=== PATIENT | female | born 1955 | race African-American/Black ===

== ENCOUNTER 2017-07-12 13:17 | Inpatient (IN) | payer BC, OTHER ==
[~2017-07-12] VITALS: Ht 167.6 cm; Wt 54.4 kg
[~2017-07-12 13:17] MED LIST: IBUPROFEN600 MG PO; LOSARTAN POTASS50 MG ORAL; NKMED; TYLENOL EXTRA500 MG ORAL; VICODIN 5-5001 EACH PO
[2017-07-12] MEDS ORDERED: CIPRO250 MG/51 PO (13:30)
[2017-07-12] MEDS ORDERED: SYMAX-SL0.125 MG SL (13:30)
[2017-07-12] MEDS ORDERED: ZOFRAN ODT4 MG ORAL (13:30)
[2017-07-12 13:35] VITALS: BP 163/69
[2017-07-12] MEDS ORDERED: Acetaminophen 500mg (ES) tab ORAL ONE (13:45)
--- NOTE | 2017-07-12 13:50 | Emergency Room Report ---
History of Present Illness General Chief Complaint: Constipation Source: Patient, Medical Record Present Illness HPI 62 yo female patient presents to ER complaining of constipation x4 days. Reports no diarrhea during this time. Reports pain in lower abdomen. Reports taking Zofran and Symax-SL for symptom relief. Taking Cipro for UTI, taking medication since , provided by Dr. Schmitt. Denies hx of kidney problems. Denies hx of GI problems or GI surgery. Reports hx of ovarian cyst and fibroids; reports surgery to remove years ago. Denies fever, chest pain, SOB. Patient also complains of hematuria. Denies dysuria, vaginal discharge. Denies nausea, vomiting, vision changes. Allergies: Coded Allergies: No Known Allergies (Unverified , 01/22/12) Patient History Past Medical History: see triage record Reviewed Nursing Documentation: PMH: Agreed; PSxH: Agreed Nursing Documentation-PMH Past Medical History: No History, Except For Hx Hypertension: Yes Hx Pacemaker: No Hx Asthma: No Hx COPD: No Hx Diabetes: No Hx Cancer: No Hx Gastrointestinal Problems: No Hx Dialysis: No Hx Neurological Problems: No Hx Cerebrovascular Accident: No Hx Seizures: No Review of Systems All Other Systems: negative except mentioned in HPI Physical Exam Vital Signs Date Time Temp Pulse Resp B/P (MAP) Pulse Ox O2 Delivery O2 Flow Rate FiO2 07/12/17 13:25 100.1 102 18 146/81 96 Room Air 100.0 Sp02 EP Interpretation: reviewed, normal General Appearance: well appearing, no apparent distress, alert, GCS 15, non- toxic Head: normocephalic, atraumatic ENT: hearing grossly normal, normal pharynx, no angioedema, normal voice, uvula midline, moist mucus membranes Neck: full range of motion Respiratory: lungs clear, normal breath sounds, no rhonchi, no respiratory distress, no accessory muscle use, no wheezing, speaking full sentences Cardiovascular #1: regular rate, rhythm, no edema Gastrointestinal: soft, no mass, non-distended, no guarding, no rebound, tenderness - supraprubic Neurologic: alert, oriented x3, responsive, motor strength/tone normal, sensory intact Psychiatric: mood/affect normal Skin: no rash Medical Decision Making PA Attestation Dr. Anaya is my supervising Physician whom patient management has been discussed with. Diagnostic Impression: Primary Impression: Constipation Additional Impressions: Phlegmon Abdominal infection ER Course Pt. presents to the ED c/o abdominal pain and vomiting. Ddx considered but are not limited to UTI, cholelithiasis, cholecystitis, pancreatitis, appendicitis, diverticulitis. Begin abdominal pain workup. Provided patient with pain medication. Vital signs: are WNL, pt. is afebrile ORDERS: CBC, CMP, Lipase, UA, Troponin CT abdomen pelvis, renal US, and pain medication. ER COURSE: Dr. Perez consulted Dr. Schmitt regarding patient. Tylenol for pain CBC and CMP unremarkable, mild elevation of WBC, no elevation of liver enzymes Lipase 44, no acute elevation UA positive for leukocyte esterase, WBCs in urine. Currently being treated for UTI with Cipro, continue with current medication. Troponin negative 0.000 Dr. Schmitt reports gross hematuria, requesting renal US. Renal US negative for hydronephrosis, kidney stones, cysts per US ultrasound technician. CT abdomen pelvis shows: At the midline upper pelvis adjacent to the sigmoid there is area of phlegmon and inflammation measuring approximately 4 x 4.5 x 3.5 cm. Adjacent sigmoid wall is thickened. Overall findings likely represent diverticulitis/colitis and adjacent inflammation and phlegmon. Possible development of early abscess within the area of phlegmon of approximately 2.5 cm. Focal fatty infiltration of the liver adjacent to the falciform ligament otherwise liver unremarkable. Degenerative changes of the spine. Surgical clips bilateral pelvis Patient resting comfortably in bed. Dr. Schmitt reports gross hematuria, requesting renal US. Renal US negative for hydronephrosis, kidney stones, cysts per US ultrasound technician. Consult with Dr. Anaya. Consult with Dr. Garcia and Dr. Dexter. Patient will be admitted to telemetry for abdominal infection vs. abscess. Patient admitted to Dr. Garcia. Labs Test 07/12/17 13:45 07/12/17 14:21 White Blood Count 12.1 K/UL (4.8-10.8) Red Blood Count 4.19 M/UL (4.20-5.40) Hemoglobin 13.9 G/DL (12.0-16.0) Hematocrit 40.4 % (37.0-47.0) Mean Corpuscular Volume 96 FL (80-99) Mean Corpuscular Hemoglobin 33.2 PG (27.0-31.0) Mean Corpuscular Hemoglobin Concent 34.4 G/DL (32.0-36.0) Red Cell Distribution Width 10.9 % (11.6-14.8) Platelet Count 202 K/UL (150-450) Mean Platelet Volume 7.1 FL (6.5-10.1) Neutrophils (%) (Auto) % (45.0-75.0) Lymphocytes (%) (Auto) % (20.0-45.0) Monocytes (%) (Auto) % (1.0-10.0) Eosinophils (%) (Auto) % (0.0-3.0) Basophils (%) (Auto) % (0.0-2.0) Differential Total Cells Counted 100 Neutrophils % (Manual) 85 % (45-75) Lymphocytes % (Manual) 6 % (20-45) Monocytes % (Manual) 8 % (1-10) Eosinophils % (Manual) 1 % (0-3) Basophils % (Manual) 0 % (0-2) Band Neutrophils 0 % (0-8) Platelet Estimate Adequate Platelet Morphology Normal Red Blood Cell Morphology Normal Sodium Level 137 MMOL/L (136-145) Potassium Level 3.7 MMOL/L (3.5-5.1) Chloride Level 101 MMOL/L (98-107) Carbon Dioxide Level 26 MMOL/L (21-32) Anion Gap 10 mmol/L (5-15) Blood Urea Nitrogen 17 mg/dL (7-18) Creatinine 0.5 MG/DL (0.55-1.30) Estimat Glomerular Filtration Rate > 60 mL/min (>60) Glucose Level 94 MG/DL (74-106) Calcium Level 9.5 MG/DL (8.5-10.1) Total Bilirubin 0.8 MG/DL (0.2-1.0) Aspartate Amino Transf (AST/SGOT) 25 U/L (15-37) Alanine Aminotransferase (ALT/SGPT) 26 U/L (12-78) Alkaline Phosphatase 133 U/L (46-116) Troponin I 0.000 ng/mL (0.000-0.056) Total Protein 7.7 G/DL (6.4-8.2) Albumin 3.3 G/DL (3.4-5.0) Globulin 4.4 g/dL Albumin/Globulin Ratio 0.8 (1.0-2.7) Lipase 44 U/L (73-393) Urine Color Yellow Urine Appearance Slightly cloudy Urine pH 7 (4.5-8.0) Urine Specific [place] 1.015 (1.005-1.035) Urine Protein 2+ (NEGATIVE) Urine Glucose (UA) Negative (NEGATIVE) Urine Ketones 4+ (NEGATIVE) Urine Occult Blood 4+ (NEGATIVE) Urine Nitrite Negative (NEGATIVE) Urine Bilirubin 1+ (NEGATIVE) Urine Ictotest Negative Urine Urobilinogen 8 MG/DL (0.0-1.0) Urine Leukocyte Esterase 3+ (NEGATIVE) Urine RBC 2-4 /HPF (0 - 2) Urine WBC 5-10 /HPF (0 - 2) Urine Squamous Epithelial Cells Moderate /LPF (NONE/OCC) Urine Bacteria Few /HPF (NONE) EKG Diagnostic Results Rate: normal Rhythm: NSR ST Segments: no acute changes ASA given to the pt in ED: No PA Scribe Text Ye Laguna PA-C Rhythm Strip Diag. Results EP Interpretation: yes Rate: 94 Rhythm: NSR, no PVC's, no ectopy PA Scribe Text Ye Laguna PA-C CT/MRI/US Diagnostic Results CT/MRI/US Diagnostic Results #1: Imaging Test Ordered: CT abdomen pelvis Impression STATRAD At the midline upper pelvis adjacent to the sigmoid there is area of phlegmon and inflammation measuring approximately 4 x 4.5 x 3.5 cm. Adjacent sigmoid wall is thickened. Overall findings likely represent diverticulitis/colitis and adjacent inflammation and phlegmon. Possible development of early abscess within the area of phlegmon of approximately 2.5 cm. No bowel obstruction or free air or free fluid. Appendix normal caliber. Lung bases are clear of infiltrates No urinary tract stones or hydronephrosis or perinephric inflammatory changes. Focal fatty infiltration of the liver adjacent to the falciform ligament otherwise liver unremarkable. Remaining solid organs of the abdomen along with the gallbladder are unremarkable Degenerative changes of the spine. No acute osseous abnormality. Surgical clips bilateral pelvis CT/MRI/US Diagnostic Results #2: Imaging Test Ordered: Renal US Impression No renal calculi, no hydronephrosis per US ultrasound technician VIA STATRAD Kidneys are normal size and echotexture bilaterally No evidence of hydronephrosis. No renal calculi identified. Urinary bladder is nondistended limiting bladder evaluation. Last Vital Signs Date Time Temp Pulse Resp B/P (MAP) Pulse Ox O2 Delivery O2 Flow Rate FiO2 07/12/17 13:25 100.1 102 18 146/81 96 Room Air 100.0 Disposition: ADMITTED INPATIENT Condition: Serious Jose Laguna Jul 12, 2017 13:50
[2017-07-12 14:00] LABS: HEMATOCRIT 40.4 % (37.0-47.0); HEMOGLOBIN 13.9 G/DL (12.0-16.0); MEAN CORPUSCULAR VOLUME 96 FL (80-99); PLATELET COUNT 202 K/UL (150-450); RED BLOOD COUNT 4.19 M/UL (4.20-5.40); RED CELL DISTRIBUTION WIDTH 10.9 % (11.6-14.8); WHITE BLOOD COUNT 12.1 K/UL (4.8-10.8)
[2017-07-12 14:08] LABS: ANION GAP 10 mmol/L (5-15); BLOOD UREA NITROGEN 17 mg/dL (7-18); CALCIUM 9.5 MG/DL (8.5-10.1); CARBON DIOXIDE 26 MMOL/L (21-32); CHLORIDE 101 MMOL/L (98-107); CREATININE 0.5 MG/DL (0.55-1.30); POTASSIUM 3.7 MMOL/L (3.5-5.1); SODIUM 137 MMOL/L (136-145)
[2017-07-12 14:12] LABS: ALANINE AMINOTRANSFERASE 26 U/L (12-78); ALBUMIN 3.3 G/DL (3.4-5.0); ALBUMIN/GLOBULIN RATIO 0.8 (1.0-2.7); ALKALINE PHOSPHATASE 133 U/L (46-116); ASPARTATE AMINO TRANSFERASE 25 U/L (15-37); BILIRUBIN,TOTAL 0.8 MG/DL (0.2-1.0)
[2017-07-12 14:28] LABS: APPEARANCE,URINE SLIGHTLY CLOUDY; BILIRUBIN, URINE 1+ (NEGATIVE); GLUCOSE, URINE (UA) NEGATIVE (NEGATIVE); KETONES,URINE 4+ (NEGATIVE); LEUKOCYTE ESTERASE ,URINE 3+ (NEGATIVE); NITRITE,URINE NEGATIVE (NEGATIVE); PH,URINE 7 (4.5-8.0); PROTEIN,URINE 2+ (NEGATIVE); UROBILINOGEN,URINE 8 MG/DL (0.0-1.0)
[2017-07-12 14:41] LABS: COLOR,URINE YELLOW
[2017-07-12 15:53] VITALS: BP 135/72
[2017-07-12] MEDS ORDERED: Vancomycin 1 GM in NS 275 ML IVPB ONE (16:15)
[2017-07-12] MEDS ORDERED: Piperacillin/Tazobactam 3.375 GM in NS 110 ML IVPB ONE (16:15)
[2017-07-12 17:47] VITALS: BP 133/68
[2017-07-12] MEDS ORDERED: LEVSIN-SL0.125 MG SL (18:38)
[2017-07-12 18:55] VITALS: BP 135/80
[2017-07-12 20:00] VITALS: BP 145/78
[2017-07-12] MEDS ORDERED: Milk of Magnesia 30ml Ud ORAL PRN (20:15)
[2017-07-12] MEDS: Norco 5mg/325mg tab ORAL PRN (21:29)
[2017-07-12] MEDS: Zoysn 3.37gm in NS 100ML IVPB SCH (21:33)
[2017-07-12] MEDS: Heparin 5000 units/ml inj SUBQ SCH (21:34)
[2017-07-12] MEDS ORDERED: Morphine Sulfate 2mg/ml Inj IVP PRN (23:15)
--- NOTE | 2017-07-12 23:15 | Consultation ---
History of Present Illness General Date patient seen: Jul 12, 2017 Chief Complaint: Constipation Reason for Consultation: abdominal pain; acute diverticulitis Present Illness HPI 62 year old female presented to ED with complaints of worsening abdominal pain. As per patient, she began to have some cramping LLQ abdominal pain 4-5 days ago which has progressively worsened since. Currently pain 7/10 and intermittent. no radiation of pain. associated nausea but no emesis. no fever or chills. has not had BM in 4 days. passing flatus. Came to ED for evaluation today and noted to have acute diverticulitis with peridiverticular phlegmon. surgery called to evaluate. Allergies: Coded Allergies: No Known Allergies (Unverified , 01/22/12) Medication History Scheduled Ciprofloxacin (Cipro), 250 MG PO BID, (Reported) Hyoscyamine Sulfate* (Levsin-Sl*), 0.125 MG SL FOUR TIMES A DAY, (Reported) Scheduled PRN Ondansetron Odt* (Zofran Odt*), 4 MG ORAL Q6H PRN for Nausea & Vomiting, ( Reported) Discontinued Medications Acetaminophen* (Tylenol Extra Strength*), 500 MG ORAL Q8H PRN for For Pain Discontinued Reason: Pt stopped taking med Losartan Potassium* (Losartan Potassium*), 50 MG ORAL DAILY, (Reported) Discontinued Reason: Pt stopped taking med Patient History History Provided By: Patient, Medical Record, PMD Healthcare decision maker Resuscitation status Full Code Advanced Directive on File No Past Medical/Surgical History Past Medical/Surgical History: (1) HTN (hypertension) (2) Acute diverticulitis (3) Phlegmon (4) Constipation (5) Abdominal infection (6) Abdominal infection Review of Systems All Other Systems: negative except mentioned in HPI Physical Exam General Appearance: no apparent distress, alert Lines, tubes and drains: peripheral HEENT: normocephalic, atraumatic, mucous membranes moist, PERRL Neck: normal inspection Respiratory/Chest: chest wall non-tender, lungs clear, normal breath sounds, no respiratory distress, no accessory muscle use Cardiovascular/Chest: normal peripheral pulses, normal rate Abdomen: normal bowel sounds, soft, no organomegaly, no mass, guarding, tender , other - soft, non distended, tender with voluntary guarding in lower abdomen mainly pelvic and LLQ. Extremities: normal range of motion, non-tender, normal inspection, no calf tenderness Skin Exam: normal pigmentation Neurologic: alert, oriented x 3, responsive Last 24 Hour Vital Signs Date Time Temp Pulse Resp B/P (MAP) Pulse Ox O2 Delivery O2 Flow Rate FiO2 07/12/17 20:00 97.0 89 20 145/78 100 97.0 07/12/17 20:00 88 07/12/17 18:55 99.0 86 20 135/80 97 Room Air 99.0 07/12/17 18:52 98.4 86 15 138/72 98 Room Air 98.7 07/12/17 17:47 98.7 82 20 133/68 97 Room Air 98.7 07/12/17 15:53 98.5 83 14 135/72 98 Room Air 98.5 07/12/17 14:54 98.5 07/12/17 13:55 99.7 07/12/17 13:35 99.7 97 24 163/69 98 Room Air 99.7 07/12/17 13:25 100.1 102 18 146/81 96 Room Air 100.0 Laboratory Tests Test 07/12/17 13:45 07/12/17 14:21 White Blood Count 12.1 K/UL (4.8-10.8) H Red Blood Count 4.19 M/UL (4.20-5.40) L Hemoglobin 13.9 G/DL (12.0-16.0) Hematocrit 40.4 % (37.0-47.0) Mean Corpuscular Volume 96 FL (80-99) Mean Corpuscular Hemoglobin 33.2 PG (27.0-31.0) H Mean Corpuscular Hemoglobin Concent 34.4 G/DL (32.0-36.0) Red Cell Distribution Width 10.9 % (11.6-14.8) L Platelet Count 202 K/UL (150-450) Mean Platelet Volume 7.1 FL (6.5-10.1) Neutrophils (%) (Auto) % (45.0-75.0) Lymphocytes (%) (Auto) % (20.0-45.0) Monocytes (%) (Auto) % (1.0-10.0) Eosinophils (%) (Auto) % (0.0-3.0) Basophils (%) (Auto) % (0.0-2.0) Differential Total Cells Counted 100 Neutrophils % (Manual) 85 % (45-75) H Lymphocytes % (Manual) 6 % (20-45) L Monocytes % (Manual) 8 % (1-10) Eosinophils % (Manual) 1 % (0-3) Basophils % (Manual) 0 % (0-2) Band Neutrophils 0 % (0-8) Platelet Estimate Adequate Platelet Morphology Normal Red Blood Cell Morphology Normal Sodium Level 137 MMOL/L (136-145) Potassium Level 3.7 MMOL/L (3.5-5.1) Chloride Level 101 MMOL/L (98-107) Carbon Dioxide Level 26 MMOL/L (21-32) Anion Gap 10 mmol/L (5-15) Blood Urea Nitrogen 17 mg/dL (7-18) Creatinine 0.5 MG/DL (0.55-1.30) L Estimat Glomerular Filtration Rate > 60 mL/min (>60) Glucose Level 94 MG/DL (74-106) Calcium Level 9.5 MG/DL (8.5-10.1) Total Bilirubin 0.8 MG/DL (0.2-1.0) Aspartate Amino Transf (AST/SGOT) 25 U/L (15-37) Alanine Aminotransferase (ALT/SGPT) 26 U/L (12-78) Alkaline Phosphatase 133 U/L (46-116) H Troponin I 0.000 ng/mL (0.000-0.056) Total Protein 7.7 G/DL (6.4-8.2) Albumin 3.3 G/DL (3.4-5.0) L Globulin 4.4 g/dL Albumin/Globulin Ratio 0.8 (1.0-2.7) L Lipase 44 U/L (73-393) L Urine Color Yellow Urine Appearance Slightly cloudy Urine pH 7 (4.5-8.0) Urine Specific [place] 1.015 (1.005-1.035) Urine Protein 2+ (NEGATIVE) H Urine Glucose (UA) Negative (NEGATIVE) Urine Ketones 4+ (NEGATIVE) H Urine Occult Blood 4+ (NEGATIVE) H Urine Nitrite Negative (NEGATIVE) Urine Bilirubin 1+ (NEGATIVE) H Urine Ictotest Negative Urine Urobilinogen 8 MG/DL (0.0-1.0) H Urine Leukocyte Esterase 3+ (NEGATIVE) H Urine RBC 2-4 /HPF (0 - 2) H Urine WBC 5-10 /HPF (0 - 2) H Urine Squamous Epithelial Cells Moderate /LPF (NONE/OCC) H Urine Bacteria Few /HPF (NONE) Height (Feet): 5 Height (Inches): 5.00 Weight (Pounds): 120 Medications Current Medications Medications (Trade) Dose Ordered Sig/Hood Route PRN Reason Start Time Stop Time Status Last Admin Dose Admin Acetaminophen (Tylenol) 650 mg Q6H PRN ORAL Mild Pain/Temp > 100.5 07/12/17 20:15 08/11/17 20:14 Acetaminophen/ Hydrocodone Bitart ([place] 5/325) 1 tab Q4H PRN ORAL Severe Pain (Pain Scale 7-10) 07/12/17 20:15 07/19/17 20:14 07/12/17 21:29 Al Hydroxide/Mg Hydroxide (Mylanta) 30 ml BID PRN ORAL stomach upset 07/12/17 20:15 08/11/17 20:14 Docusate Sodium (Colace) 100 mg TWICE A DAY ORAL 07/13/17 09:00 08/12/17 08:59 Heparin Sodium (Porcine) (Heparin 5000 units/ml) 5,000 units EVERY 12 HOURS SUBQ 07/12/17 21:00 08/11/17 20:59 07/12/17 21:34 Hyoscyamine Sulfate (Levsin) 0.125 mg QIDPRN PRN ORAL ABDOMINAL CRAMPS 07/12/17 20:15 08/11/17 20:14 Magnesium Hydroxide (Mom) 30 ml DAILYPRN PRN ORAL Constipation 07/12/17 20:15 08/11/17 20:14 Ondansetron HCl (Zofran) 4 mg Q4HR PRN IVP Nausea & Vomiting 07/12/17 20:15 08/11/17 20:14 Piperacillin Sod/ Tazobactam Sod 3.375 gm/Sodium Chloride 110 ml @ 27.5 mls/hr Q8H IVPB 07/12/17 22:00 07/19/17 23:59 07/12/17 21:33 Sodium Chloride 1,000 ml @ 100 mls/hr Q10H IV 07/12/17 20:15 08/11/17 20:14 07/12/17 21:19 Assessment/Plan Problem List: (1) Acute diverticulitis Assessment & Plan: 62F with acute diverticulitis. Afebrile, HD stable, mild leukocytosis, exam with lower abdominal tenderness, CT with phlegmon. Hinchy 1 classification. -no acute surgical intervention at this time. -NPO -IV fluids -IV abx -will monitor exam. once improved will trail oral diet. -phlegmon may become abscess that needs to be drained -if decompensates/worsens may require surgery thank you for this consultation. will follow with recs. ICD Codes: K57.92 - Diverticulitis of intestine, part unspecified, without perforation or abscess without bleeding SNOMED: [id number] Status: stable Malachi Dexter Jul 12, 2017 23:15
[2017-07-13] VITALS: BP 123/66
[2017-07-13 04:00] VITALS: BP 126/72
[2017-07-13] MEDS: Zoysn 3.37gm in NS 100ML IVPB SCH ×3 (05:35→21:19)
[2017-07-13] MEDS: Docusate 100mg cap ORAL SCH ×2 (09:11→18:43)
[2017-07-13] MEDS: Heparin 5000 units/ml inj SUBQ SCH ×2 (09:14→21:20)
[2017-07-13 09:15] LABS: BASOPHILS % (AUTO) 0.4 % (0.0-2.0); EOSINOPHILS % (AUTO) 0.5 % (0.0-3.0); HEMATOCRIT 37.5 % (37.0-47.0); HEMOGLOBIN 12.6 G/DL (12.0-16.0); LYMPHOCYTES % (AUTO) 9.9 % (20.0-45.0); MEAN CORPUSCULAR VOLUME 97 FL (80-99); NEUTROPHILS % (AUTO) 78.2 % (45.0-75.0); PLATELET COUNT 217 K/UL (150-450); RED BLOOD COUNT 3.88 M/UL (4.20-5.40); RED CELL DISTRIBUTION WIDTH 11.1 % (11.6-14.8)
[2017-07-13 09:53] LABS: ALANINE AMINOTRANSFERASE 25 U/L (12-78); ALBUMIN 2.9 G/DL (3.4-5.0); ALBUMIN/GLOBULIN RATIO 0.7 (1.0-2.7); ALKALINE PHOSPHATASE 123 U/L (46-116); ANION GAP 9 mmol/L (5-15); ASPARTATE AMINO TRANSFERASE 27 U/L (15-37); BILIRUBIN,TOTAL 0.9 MG/DL (0.2-1.0); BLOOD UREA NITROGEN 11 mg/dL (7-18); CALCIUM 8.9 MG/DL (8.5-10.1); CARBON DIOXIDE 28 MMOL/L (21-32); CHLORIDE 100 MMOL/L (98-107); CHOLESTEROL 162 MG/DL (< 200); CREATININE 0.5 MG/DL (0.55-1.30); HDL CHOLESTEROL 83 MG/DL (40-60); POTASSIUM 3.7 MMOL/L (3.5-5.1); SODIUM 137 MMOL/L (136-145); TRIGLYCERIDES 43 MG/DL (30-150)
--- NOTE | 2017-07-13 10:11 | Diagnostic Imaging Report ---
Indication: Abdominal pain Technique: Continuous helical transaxial imaging of the abdomen and pelvis was obtained from the lung bases to the pubic symphysis during intravenous contrast administration. Coronal 2-D reformats were also obtained. Study obtained in a Siemens sensation [address] Automatic Exposure Control was utilized. Total Dose length Product (DLP): 480.[address] Dose Index Volume (CTDIvol): 10.01 mGy Comparison: 09/11/2015 Findings: The ill-defined area of low attenuation anterior to the sigmoid colon measuring about 4 cm noted. This is probably area of focal inflammation or phlegmon. Agree with the pulmonary reading that this may represent early abscess. Recommend follow-up. The wall of the associated sigmoid colon is moderately thick. There is no evidence of obstruction. There is no free fluid. Appendix is normal. Solid organs appear unremarkable. There is a focal fat in the liver adjacent to the falciform ligament. Lung bases are clear. Accessory spleen noted. No biliary ductal dilatation is identified. Uterus noted. Surgical clips demonstrated in the right adnexa. Urinary bladder is nondistended. There is narrowing of intervertebral discs and accompanying endplate osteophyte formation. Hypertrophied facet joints also demonstrated. IMPRESSION: Suspected diverticulitis with abscess versus phlegmon just anterior to the sigmoid colon. This is doubtful to be percutaneously drainable given the location. Suggest follow-up. Other incidental findings as above The CT scanner at [facility] is accredited by the [employer] and the scans are performed using dose optimization techniques as appropriate to a performed exam including Automatic Exposure control.
--- NOTE | 2017-07-13 10:17 | General Surgery Progress Note ---
General Surgery-Progress Note Subjective Symptoms: improved Additional Comments no acute events. doing well. still with abdominal pain but somewhat improved. no n/v/f/c. Objective Last 24 Hour Vital Signs Date Time Temp Pulse Resp B/P (MAP) Pulse Ox O2 Delivery O2 Flow Rate FiO2 07/13/17 04:00 89 07/13/17 04:00 99.1 95 20 126/72 96 Room Air 99.1 07/13/17 00:00 87 07/13/17 00:00 99.0 89 20 123/66 100 Room Air 99.0 07/12/17 20:00 97.0 89 20 145/78 100 97.0 07/12/17 20:00 88 07/12/17 20:00 Room Air 07/12/17 18:55 99.0 86 20 135/80 97 Room Air 99.0 07/12/17 18:52 98.4 86 15 138/72 98 Room Air 98.7 07/12/17 17:47 98.7 82 20 133/68 97 Room Air 98.7 07/12/17 15:53 98.5 83 14 135/72 98 Room Air 98.5 07/12/17 14:54 98.5 07/12/17 13:55 99.7 07/12/17 13:35 99.7 97 24 163/69 98 Room Air 99.7 07/12/17 13:25 100.1 102 18 146/81 96 Room Air 100.0 I&O Intake and Output 07/12/17 07/13/17 19:00 07:00 Intake Total 385.0 ml 1145 ml Balance 385.0 ml 1145 ml Intake Oral 30 ml IV Total 385.0 ml 1115 ml # Voids 1 1 Drains: none Cardiovascular: RSR Respiratory: clear Abdomen: soft, flat, tenderness, other - tender in LLQ and lower abdomen with voluntary guarding and rebound. Laboratory Tests Test 07/12/17 13:45 07/12/17 14:21 07/13/17 08:35 White Blood Count 12.1 K/UL (4.8-10.8) H 11.0 K/UL (4.8-10.8) H Red Blood Count 4.19 M/UL (4.20-5.40) L 3.88 M/UL (4.20-5.40) L Hemoglobin 13.9 G/DL (12.0-16.0) 12.6 G/DL (12.0-16.0) Hematocrit 40.4 % (37.0-47.0) 37.5 % (37.0-47.0) Mean Corpuscular Volume 96 FL (80-99) 97 FL (80-99) Mean Corpuscular Hemoglobin 33.2 PG (27.0-31.0) H 32.6 PG (27.0-31.0) H Mean Corpuscular Hemoglobin Concent 34.4 G/DL (32.0-36.0) 33.7 G/DL (32.0-36.0) Red Cell Distribution Width 10.9 % (11.6-14.8) L 11.1 % (11.6-14.8) L Platelet Count 202 K/UL (150-450) 217 K/UL (150-450) Mean Platelet Volume 7.1 FL (6.5-10.1) 7.1 FL (6.5-10.1) Neutrophils (%) (Auto) % (45.0-75.0) 78.2 % (45.0-75.0) H Lymphocytes (%) (Auto) % (20.0-45.0) 9.9 % (20.0-45.0) L Monocytes (%) (Auto) % (1.0-10.0) 11.0 % (1.0-10.0) H Eosinophils (%) (Auto) % (0.0-3.0) 0.5 % (0.0-3.0) Basophils (%) (Auto) % (0.0-2.0) 0.4 % (0.0-2.0) Differential Total Cells Counted 100 Neutrophils % (Manual) 85 % (45-75) H Lymphocytes % (Manual) 6 % (20-45) L Monocytes % (Manual) 8 % (1-10) Eosinophils % (Manual) 1 % (0-3) Basophils % (Manual) 0 % (0-2) Band Neutrophils 0 % (0-8) Platelet Estimate Adequate Platelet Morphology Normal Red Blood Cell Morphology Normal Sodium Level 137 MMOL/L (136-145) 137 MMOL/L (136-145) Potassium Level 3.7 MMOL/L (3.5-5.1) 3.7 MMOL/L (3.5-5.1) Chloride Level 101 MMOL/L (98-107) 100 MMOL/L (98-107) Carbon Dioxide Level 26 MMOL/L (21-32) 28 MMOL/L (21-32) Anion Gap 10 mmol/L (5-15) 9 mmol/L (5-15) Blood Urea Nitrogen 17 mg/dL (7-18) 11 mg/dL (7-18) Creatinine 0.5 MG/DL (0.55-1.30) L 0.5 MG/DL (0.55-1.30) L Estimat Glomerular Filtration Rate > 60 mL/min (>60) > 60 mL/min (>60) Glucose Level 94 MG/DL (74-106) 82 MG/DL (74-106) Calcium Level 9.5 MG/DL (8.5-10.1) 8.9 MG/DL (8.5-10.1) Total Bilirubin 0.8 MG/DL (0.2-1.0) 0.9 MG/DL (0.2-1.0) Aspartate Amino Transf (AST/SGOT) 25 U/L (15-37) 27 U/L (15-37) Alanine Aminotransferase (ALT/SGPT) 26 U/L (12-78) 25 U/L (12-78) Alkaline Phosphatase 133 U/L (46-116) H 123 U/L (46-116) H Troponin I 0.000 ng/mL (0.000-0.056) Total Protein 7.7 G/DL (6.4-8.2) 7.0 G/DL (6.4-8.2) Albumin 3.3 G/DL (3.4-5.0) L 2.9 G/DL (3.4-5.0) L Globulin 4.4 g/dL 4.1 g/dL Albumin/Globulin Ratio 0.8 (1.0-2.7) L 0.7 (1.0-2.7) L Lipase 44 U/L (73-393) L Urine Color Yellow Urine Appearance Slightly cloudy Urine pH 7 (4.5-8.0) Urine Specific [place] 1.015 (1.005-1.035) Urine Protein 2+ (NEGATIVE) H Urine Glucose (UA) Negative (NEGATIVE) Urine Ketones 4+ (NEGATIVE) H Urine Occult Blood 4+ (NEGATIVE) H Urine Nitrite Negative (NEGATIVE) Urine Bilirubin 1+ (NEGATIVE) H Urine Ictotest Negative Urine Urobilinogen 8 MG/DL (0.0-1.0) H Urine Leukocyte Esterase 3+ (NEGATIVE) H Urine RBC 2-4 /HPF (0 - 2) H Urine WBC 5-10 /HPF (0 - 2) H Urine Squamous Epithelial Cells Moderate /LPF (NONE/OCC) H Urine Bacteria Few /HPF (NONE) Triglycerides Level 43 MG/DL (30-150) Cholesterol Level 162 MG/DL (< 200) LDL Cholesterol 69 mg/dL (<100) HDL Cholesterol 83 MG/DL (40-60) H Cholesterol/HDL Ratio 2.0 (3.3-4.4) L Plan Problems: (1) Acute diverticulitis Assessment & Plan: 62F with acute diverticulitis. Afebrile, HD stable, mild leukocytosis on admission, exam with lower abdominal tenderness, CT with phlegmon. Hinchy 1 classification. Leukocytosis resolved. Still with abdominal tenderness. conservative medical management for now. -NPO -IV fluids -IV abx -will monitor exam. -phlegmon may become abscess that needs to be drained; if pain does not resolve over next 2-3 days will need to re-image. -if decompensates/worsens will require surgery thank you for this consultation. will follow with recs. Malachi Dexter Jul 13, 2017 10:17
[2017-07-13] MEDS: Morphine Sulfate 4mg/ml Inj IVP PRN (10:54)
--- NOTE | 2017-07-13 11:45 | Consultation ---
DATE OF CONSULTATION: 07/13/2017 INFECTIOUS DISEASE CONSULTATION CONSULTING PHYSICIAN: José Vazquez M.D. This consult is for coverage of Dr. Sears. PRIMARY ATTENDING PHYSICIAN: Miles Fontaine M.D. REASON FOR CONSULTATION: Acute diverticulitis. HISTORY OF PRESENT ILLNESS: This is a 62-year-old female admitted yesterday from home complaining of pain in the left lower abdomen. She had constipation for four days and had fever at home. She had temperature of 100.1 in the hospital, had leukocytosis of 12.1. CT scan of the abdomen and pelvis showed diverticulitis and phlegmon. PAST MEDICAL HISTORY: She has history of surgery for fibroid, history of hypertension. ALLERGIES: No known drug allergies. MEDICATIONS: Colace, morphine, Zosyn, heparin, Zofran, hyoscyamine, Tylenol, milk of magnesia, Mylanta, [place]. SOCIAL HISTORY: and lives at home. No children. No history of alcohol, drug abuse, or smoking. REVIEW OF SYSTEMS: Mild fever at home. Left lower abdominal pain. No nausea. No vomiting. She has constipation. Genitourinary, the patient at the beginning stated that she has UTI and took Cipro at home. PHYSICAL EXAMINATION: VITAL SIGNS: Temperature 99.1, pulse 89, blood pressure 126/72. GENERAL APPEARANCE: No acute distress. HEAD AND NECK: She has whitish tongue. HEART: S1, S2. Regular. LUNGS: Clear. ABDOMEN: Soft. Tender in the left lower quadrant. EXTREMITIES: She has no edema. LABORATORY AND DIAGNOSTIC DATA: WBC 12.1, hemoglobin 13.9, hematocrit 40.4, platelet 202,000. Sodium 137, potassium 3.7, chloride 101, bicarbonate 26, BUN 17, creatinine 0.5, albumin 3.3. IMPRESSION: 1. Acute diverticulitis with rupture and intra-abdominal phlegmon. The patient was seen by the surgeon. 2. History of hypertension. RECOMMENDATION: Continue Zosyn. If the patient fails to respond to antibiotic and hydration, may need surgery. At the end of my exam, I thank Dr. Fontaine for involving me in the care of this patient. José Vazquez M.D. DR: Kasey JOB#: [id number] CC:
--- NOTE | 2017-07-13 12:06 | Diagnostic Imaging Report ---
Indication: Flank pain and pelvic pain Technique: Grayscale and duplex Doppler imaging of the kidneys performed. Comparison: None Findings: The size, contour, and echogenicity of both kidneys are within normal limits. There is no hydronephrosis. The IVC and urinary bladder are unremarkable. IMPRESSION: Negative examination
[2017-07-13] MEDS: Hyoscyamine 0.125mg tab ORAL PRN ×2 (13:36→18:43)
[2017-07-13] MEDS: Norco 5mg/325mg tab ORAL PRN ×2 (13:37→18:44)
--- NOTE | 2017-07-13 16:15 | General Progress Note ---
Assessment/Plan Assessment/Plan GI CONSULT Dictated. Stevenson Schmitt MD Subjective Allergies: Coded Allergies: No Known Allergies (Unverified , 01/22/12) Objective Last 24 Hour Vital Signs Date Time Temp Pulse Resp B/P (MAP) Pulse Ox O2 Delivery O2 Flow Rate FiO2 07/13/17 12:00 94 07/13/17 08:00 97 07/13/17 04:00 89 07/13/17 04:00 99.1 95 20 126/72 96 Room Air 99.1 07/13/17 00:00 87 07/13/17 00:00 99.0 89 20 123/66 100 Room Air 99.0 07/12/17 20:00 97.0 89 20 145/78 100 97.0 07/12/17 20:00 88 07/12/17 20:00 Room Air 07/12/17 18:55 99.0 86 20 135/80 97 Room Air 99.0 07/12/17 18:52 98.4 86 15 138/72 98 Room Air 98.7 07/12/17 17:47 98.7 82 20 133/68 97 Room Air 98.7 Intake and Output 07/12/17 07/13/17 19:00 07:00 Intake Total 385.0 ml 1145 ml Balance 385.0 ml 1145 ml Intake Oral 30 ml IV Total 385.0 ml 1115 ml # Voids 1 1 Laboratory Tests 07/13/17 08:35: White Blood Count 11.0H, Red Blood Count 3.88L, Hemoglobin 12.6, Hematocrit 37.5 , Mean Corpuscular Volume 97, Mean Corpuscular Hemoglobin 32.6H, Mean Corpuscular Hemoglobin Concent 33.7, Red Cell Distribution Width 11.1L, Platelet Count 217, Mean Platelet Volume 7.1, Neutrophils (%) (Auto) 78.2H, Lymphocytes (%) (Auto) 9.9L, Monocytes (%) (Auto) 11.0H, Eosinophils (%) (Auto) 0.5, Basophils (%) (Auto) 0.4, Sodium Level 137, Potassium Level 3.7, Chloride Level 100, Carbon Dioxide Level 28, Anion Gap 9, Blood Urea Nitrogen 11, Creatinine 0.5L, Estimat Glomerular Filtration Rate > 60, Glucose Level 82, Calcium Level 8.9, Total Bilirubin 0.9, Aspartate Amino Transf (AST/SGOT) 27, Alanine Aminotransferase (ALT/SGPT) 25, Alkaline Phosphatase 123H, Total Protein 7.0, Albumin 2.9L, Globulin 4.1, Albumin/Globulin Ratio 0.7L, Triglycerides Level 43, Cholesterol Level 162, LDL Cholesterol 69, HDL Cholesterol 83H, Cholesterol/HDL Ratio 2.0L Height (Feet): 5 Height (Inches): 5.00 Weight (Pounds): 120 STEVENSON SCHMITT Jul 13, 2017 16:15
[2017-07-13 20:00] VITALS: BP 135/66
[2017-07-14] VITALS: BP 127/74
--- NOTE | 2017-07-14 | Consultation ---
DATE OF CONSULTATION: 07/13/2017 GASTROENTEROLOGY CONSULTATION CONSULTING PHYSICIAN: Stevenson Schmitt M.D. CHIEF COMPLAINT: I was asked to see this patient for evaluation of left-sided abdominal pain and diverticulitis. HISTORY OF PRESENT ILLNESS: The patient is a pleasant 62-year-old woman, who comes into the hospital with a four-day history of progressive left lower quadrant abdominal pain with CT scan showing evidence of diverticulitis. She was seen in the office two days after onset of her pain and she had some complaints of nausea and poor appetite and some mild abdominal pain, which did improve. She also noted some hematuria and therefore it was felt that the patient's symptoms could possibly be due to renal pathology. A prescription for ciprofloxacin was given to her and various blood tests were sent. However, she is now presenting with worsening pain and CT showing diverticulitis with early phlegmon formation. Her last colonoscopy was in May of 2015 where scattered diverticuli were seen. The patient also previously was seen for some degree of chronic loose stools and some weight loss over time. In March last year, her fecal calprotectin was negative and her labs were also normal. Stool occult blood was also negative and her stool ova and parasite exam was also negative. The patient also had her inflammatory bowel disease markers drawn in February 2017, which were negative and she has no family history of inflammatory bowel disease. Her C-reactive protein is also negative. Iron panel was normal. PAST MEDICAL HISTORY: History of fibroids and history of mild diverticulosis in the left colon. PAST SURGICAL HISTORY: Status post lung surgery at age 4 for repair of the cyst and status post multiple fibroids surgery. ALLERGIES: No known drug allergies. FAMILY HISTORY: Unremarkable. SOCIAL HISTORY: The patient is . She does not smoke, drink alcohol, or use drugs. REVIEW OF SYSTEMS: Otherwise negative. PHYSICAL EXAMINATION: GENERAL: A pleasant woman, seen in her room. HEENT: Normocephalic and atraumatic. Sclerae anicteric. Oropharynx clear. NECK: Supple. CHEST: Clear to auscultation. CARDIOVASCULAR: Revealed a regular rate. ABDOMEN: Soft with left lower quadrant tenderness with some involuntary guarding. EXTREMITIES: Revealed no edema. LABORATORY DATA: Laboratory data were noted. ASSESSMENT: This patient presents with worsening of left lower quadrant tenderness and now CT scan showing evidence of diverticulitis with phlegmon. This has been somewhat of unexpected occurrence since the patient's diverticular burden based on 2016 colonoscopy was not impressive. Nonetheless, CT scan images were specific in this regard. Therefore, the patient will be treated accordingly. The patient has been seen by surgical device sales representative who will also follow her. There may be an indication for resection at some point in the future given her severity of disease, but that will be discussed at a later time. The patient may also benefit from another colonoscopy in about a month or two once she is recovered in order to marine the areas in the colon. RECOMMENDATIONS: Per above discussion and per orders written in the chart. Thank you for asking me to participate in the care of this patient. Stevenson Schmitt M.D. DR: JOYCE JOB#: [id number] CC: NETO
--- NOTE | 2017-07-14 03:00 | History and Physical Report ---
DATE OF ADMISSION: 07/12/2017 HISTORY OF PRESENT ILLNESS: The patient is a very pleasant 62-year-old female with history of hypertension, who presented to the emergency room with complaints of worsening abdominal pain she has had for the past week. She states she had seen her physician in the office and was treated initially for urinary tract infection with ciprofloxacin, however, developed increased abdominal pain associated with nausea, no vomiting. She admitted to some chills, no fever. She states she has not had any bowel movements for four days. She did pass flatus. In the ER, she did undergo CT scan, which revealed acute diverticulitis with periventricular phlegmon. The patient was evaluated by Dr. Dexter from Surgery and has been admitted, kept NPO, and placed on antibiotics. She denies any chest pain or shortness of breath. No headaches. No sore throat. PAST MEDICAL HISTORY: Includes history of hypertension. MEDICATIONS: She was on at home include Cipro and hyoscyamine sulfate. ALLERGIES: No known. SOCIAL HISTORY: She does not smoke, does not drink any alcohol, does not use any drugs. FAMILY HISTORY: Noncontributory. REVIEW OF SYSTEMS: Twelve point review of systems reviewed and negative except for above. PHYSICAL EXAMINATION: GENERAL: She is well developed and well nourished, currently in no apparent distress. VITAL SIGNS: Reveal a blood pressure of 135/66, pulse 85, respirations 20, temperature 98.6 degrees, and saturation is 96% on room air. HEENT: Head is normocephalic and atraumatic. Pupils are equally reactive to light. Extraocular muscles are intact. Eyes are anicteric. NECK: Supple. LUNGS: Clear. HEART: Regular rate and rhythm. ABDOMEN: She does have tenderness to palpation in the lower quadrants. No rebound. Some guarding. EXTREMITIES: No clubbing, cyanosis, or edema. NEUROLOGIC: Nonfocal. LABORATORY AND DIAGNOSTIC DATA: Labs revealed a white count of 12.1, hemoglobin 13.9, hematocrit 40.4, and platelet count 202,000. Sodium 137, potassium 3.7, chloride 101, bicarbonate 26, BUN 17, and creatinine 0.5. Lipase 44. Urinalysis reveals 5 to 10 WBCs, 2 to 4 RBCs, 3+ leukocyte esterase, 4+ ketones, and 4+ occult blood. Abdominopelvic CT that was performed revealed a suspected diverticulitis with abscess versus phlegmon just anterior to the sigmoid colon. The patient also underwent renal ultrasound, which was negative. ASSESSMENT AND PLAN: The patient is a pleasant 62-year-old female, presents with abdominal pain. CT scan consistent with diverticulitis and phlegmon. The patient has been admitted to be placed on NPO, placed on intravenous fluids, and started on antibiotics. She will be seen by GI, Dr. Schmitt as well as General Surgery, Dr. Dexter. We will need to observe closely for now and follow up further imaging studies. The patient should be on DVT and ulcer prophylaxes. Miles Fontaine M.D. DR: Yissel JOB#: [id number] CC:
[2017-07-14 04:00] VITALS: BP 124/63
[2017-07-14] MEDS: Zoysn 3.37gm in NS 100ML IVPB SCH ×3 (05:39→21:20)
[2017-07-14] MEDS: Docusate 100mg cap ORAL SCH ×2 (09:00→18:06)
[2017-07-14] MEDS: Heparin 5000 units/ml inj SUBQ SCH ×2 (09:00→21:19)
--- NOTE | 2017-07-14 10:59 | General Surgery Progress Note ---
General Surgery-Progress Note Subjective Additional Comments patient seen and examined. states she feels better. no n/v/f/c. no BM. still with pain/tenderness. Objective Last 24 Hour Vital Signs Date Time Temp Pulse Resp B/P (MAP) Pulse Ox O2 Delivery O2 Flow Rate FiO2 07/14/17 04:00 81 07/14/17 04:00 97.9 90 20 124/63 98 Room Air 97.9 07/14/17 00:00 97.9 80 20 127/74 93 Room Air 97.9 07/14/17 00:00 78 07/13/17 20:00 98.6 75 20 135/66 96 Room Air 98.6 07/13/17 20:00 85 07/13/17 19:57 99.1 07/13/17 16:00 89 07/13/17 12:00 94 I&O Intake and Output 07/13/17 07/14/17 19:00 07:00 Intake Total 1216 ml Balance 1216 ml IV Total 1216 ml # Voids 3 1 Cardiovascular: RSR Respiratory: clear Abdomen: soft, tenderness, other - focal LLQ tenderness with rebound and guarding Extremities: no tenderness, no cyanosis Plan Problems: (1) Acute diverticulitis Assessment & Plan: 62F with acute diverticulitis. Afebrile, HD stable, mild leukocytosis on admission, exam with lower abdominal tenderness, CT with phlegmon. Hinchy 1 classification. Leukocytosis resolved. Still with abdominal tenderness. States she feels better but almost has a little more tenderness on exam today. I spoke with patient and her family. discussed exam findings today. conservative medical management for now. -NPO -IV fluids -IV abx -will monitor exam. -phlegmon may become abscess that needs to be drained; if pain does not resolve over next 2-3 days will need to re-image. May re-image tomorrow -if decompensates/worsens will require surgery thank you for this consultation. will follow with recs. Malachi Dexter Jul 14, 2017 10:59
--- NOTE | 2017-07-14 11:48 | Infectious Diseases Prog Note ---
"Assessment/Plan Assessment/Plan antibiotics : zosyn A 1. diverticulitis with perforation | abscess 2. HTN P 1. continue zosyn 2. plan per surgery Subjective Constitutional: Denies: fever, chills Respiratory: Denies: shortness of breath, dry cough Gastrointestinal/Abdominal: Reports: nausea; Denies: vomiting, diarrhea Musculoskeletal: Reports: pain - abdominal Allergies: Coded Allergies: No Known Allergies (Unverified , 01/22/12) Objective Vital Signs Last 24 Hour Vital Signs Date Time Temp Pulse Resp B/P (MAP) Pulse Ox O2 Delivery O2 Flow Rate FiO2 07/14/17 08:00 93 07/14/17 04:00 81 07/14/17 04:00 97.9 90 20 124/63 98 Room Air 97.9 07/14/17 00:00 97.9 80 20 127/74 93 Room Air 97.9 07/14/17 00:00 78 07/13/17 20:00 98.6 75 20 135/66 96 Room Air 98.6 07/13/17 20:00 85 07/13/17 19:57 99.1 07/13/17 16:00 89 07/13/17 12:00 94 Height (Feet): 5 Height (Inches): 5.00 Weight (Pounds): 120 Respiratory/Chest: lungs clear Cardiovascular: normal rate, regular rhythm, no gallop/murmur Abdomen: tender - in left lower quadrant Extremities: no edema BRISSA WORLEY Jul 14, 2017 11:48"
--- NOTE | 2017-07-14 12:38 | General Progress Note ---
Assessment/Plan Assessment/Plan Assessment - actue diverticulitis with likely phelgmon / microperf - leukocytosis Recommnedations - NPO - IVF - ABX - serial CBC - serial exam - surgical f/u Subjective Allergies: Coded Allergies: No Known Allergies (Unverified , 01/22/12) Subjective Feels OK / same still with some abd pain No BM Objective Last 24 Hour Vital Signs Date Time Temp Pulse Resp B/P (MAP) Pulse Ox O2 Delivery O2 Flow Rate FiO2 07/14/17 08:00 93 07/14/17 04:00 81 07/14/17 04:00 97.9 90 20 124/63 98 Room Air 97.9 07/14/17 00:00 97.9 80 20 127/74 93 Room Air 97.9 07/14/17 00:00 78 07/13/17 20:00 98.6 75 20 135/66 96 Room Air 98.6 07/13/17 20:00 85 07/13/17 19:57 99.1 07/13/17 16:00 89 Intake and Output 07/13/17 07/14/17 19:00 07:00 Intake Total 1216 ml Balance 1216 ml IV Total 1216 ml # Voids 3 1 Height (Feet): 5 Height (Inches): 5.00 Weight (Pounds): 120 Objective WDWN AA woman NCAT supple CTA RRR soft ND, (+) TTP LLQ - minimally less than yesterday no edema non focal RICCI KING Jul 14, 2017 12:38
[2017-07-14 15:17] LABS: BASOPHILS % (AUTO) 0.6 % (0.0-2.0); EOSINOPHILS % (AUTO) 0.8 % (0.0-3.0); HEMATOCRIT 37.3 % (37.0-47.0); LYMPHOCYTES % (AUTO) 10.9 % (20.0-45.0); MEAN CORPUSCULAR VOLUME 98 FL (80-99); MONOCYTES % (AUTO) 12.8 % (1.0-10.0); NEUTROPHILS % (AUTO) 74.9 % (45.0-75.0); PLATELET COUNT 211 K/UL (150-450); RED BLOOD COUNT 3.81 M/UL (4.20-5.40); RED CELL DISTRIBUTION WIDTH 10.9 % (11.6-14.8); WHITE BLOOD COUNT 11.3 K/UL (4.8-10.8)
[2017-07-14 15:22] LABS: ANION GAP 13 mmol/L (5-15); BLOOD UREA NITROGEN 5 mg/dL (7-18); CALCIUM 9.3 MG/DL (8.5-10.1); CARBON DIOXIDE 21 MMOL/L (21-32); CHLORIDE 101 MMOL/L (98-107); CREATININE 0.5 MG/DL (0.55-1.30); SODIUM 135 MMOL/L (136-145)
[2017-07-14] MEDS ORDERED: Tubing IV Secondary IV ONE (16:01)
[2017-07-14] MEDS ORDERED: NS 275ml ONE (16:01)
[2017-07-14] MEDS ORDERED: 1/2 NS 1000ml IV ONE (16:01)
[2017-07-14] MEDS: Norco 5mg/325mg tab ORAL PRN (18:07)
[2017-07-14 20:00] VITALS: BP 123/65
--- NOTE | 2017-07-14 21:49 | General Progress Note ---
Assessment/Plan Assessment/Plan diverticulitis phlegmon htn abx gensurgery fup dw Dr Dexter and Dr Kraus fluids NPO bp controlled dvt and ulcer prphylaxis Subjective Allergies: Coded Allergies: No Known Allergies (Unverified , 01/22/12) Subjective co abdominal pain no n/v no bm yet Objective Last 24 Hour Vital Signs Date Time Temp Pulse Resp B/P (MAP) Pulse Ox O2 Delivery O2 Flow Rate FiO2 07/14/17 16:00 86 07/14/17 12:00 86 07/14/17 08:00 93 07/14/17 04:00 81 07/14/17 04:00 97.9 90 20 124/63 98 Room Air 97.9 07/14/17 00:00 97.9 80 20 127/74 93 Room Air 97.9 07/14/17 00:00 78 Intake and Output 07/13/17 07/14/17 19:00 07:00 Intake Total 1216 ml Balance 1216 ml IV Total 1216 ml # Voids 3 1 Laboratory Tests 07/14/17 14:40: White Blood Count 11.3H, Red Blood Count 3.81L, Hemoglobin 13.0, Hematocrit 37.3 , Mean Corpuscular Volume 98, Mean Corpuscular Hemoglobin 34.2H, Mean Corpuscular Hemoglobin Concent 34.9, Red Cell Distribution Width 10.9L, Platelet Count 211, Mean Platelet Volume 6.4L, Neutrophils (%) (Auto) 74.9, Lymphocytes (%) (Auto) 10.9L, Monocytes (%) (Auto) 12.8H, Eosinophils (%) (Auto ) 0.8, Basophils (%) (Auto) 0.6, Sodium Level 135L, Potassium Level 4.0, Chloride Level 101, Carbon Dioxide Level 21, Anion Gap 13, Blood Urea Nitrogen 5L, Creatinine 0.5L, Estimat Glomerular Filtration Rate > 60, Glucose Level 67L , Calcium Level 9.3 Height (Feet): 5 Height (Inches): 5.00 Weight (Pounds): 120 General Appearance: WD/WN, no apparent distress Neck: supple Cardiovascular: normal rate Respiratory/Chest: lungs clear Edema: no edema noted Arm (L), no edema noted Arm (R), no edema noted Leg (L), no edema noted Leg (R), no edema noted Pedal (L), no edema noted Pedal (R), no edema noted 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
[2017-07-15] VITALS: BP 115/66
[2017-07-15 04:00] VITALS: BP 130/64
[2017-07-15] MEDS: Zoysn 3.37gm in NS 100ML IVPB SCH ×3 (06:28→21:56)
[2017-07-15 08:00] VITALS: BP 125/73
[2017-07-15 08:43] LABS: BASOPHILS % (AUTO) 0.5 % (0.0-2.0); EOSINOPHILS % (AUTO) 1.1 % (0.0-3.0); HEMATOCRIT 36.3 % (37.0-47.0); HEMOGLOBIN 12.5 G/DL (12.0-16.0); LYMPHOCYTES % (AUTO) 9.5 % (20.0-45.0); MEAN CORPUSCULAR VOLUME 98 FL (80-99); MONOCYTES % (AUTO) 16.5 % (1.0-10.0); NEUTROPHILS % (AUTO) 72.4 % (45.0-75.0); PLATELET COUNT 265 K/UL (150-450); RED BLOOD COUNT 3.72 M/UL (4.20-5.40); RED CELL DISTRIBUTION WIDTH 11.3 % (11.6-14.8); WHITE BLOOD COUNT 10.3 K/UL (4.8-10.8)
[2017-07-15] MEDS: Docusate 100mg cap ORAL SCH ×2 (09:00→18:00)
[2017-07-15] MEDS: Heparin 5000 units/ml inj SUBQ SCH ×2 (09:01→21:56)
[2017-07-15 09:27] LABS: ALANINE AMINOTRANSFERASE 22 U/L (12-78); ALBUMIN 2.8 G/DL (3.4-5.0); ALBUMIN/GLOBULIN RATIO 0.7 (1.0-2.7); ALKALINE PHOSPHATASE 134 U/L (46-116); ANION GAP 15 mmol/L (5-15); ASPARTATE AMINO TRANSFERASE 22 U/L (15-37); BILIRUBIN,TOTAL 0.5 MG/DL (0.2-1.0); BLOOD UREA NITROGEN 3 mg/dL (7-18); CALCIUM 8.7 MG/DL (8.5-10.1); CARBON DIOXIDE 18 MMOL/L (21-32); CHLORIDE 102 MMOL/L (98-107); CREATININE 0.5 MG/DL (0.55-1.30); POTASSIUM 3.8 MMOL/L (3.5-5.1); SODIUM 135 MMOL/L (136-145)
--- NOTE | 2017-07-15 10:44 | Infectious Diseases Prog Note ---
"Assessment/Plan Assessment/Plan antibiotics : zosyn A 1. diverticulitis with perforation | abscess 2. HTN 3. leucocytosis improving P 1. continue zosyn 2. plan per surgery Subjective Constitutional: Denies: fever, chills Respiratory: Reports: dry cough; Denies: shortness of breath Gastrointestinal/Abdominal: Reports: nausea; Denies: vomiting, diarrhea Musculoskeletal: Reports: pain - abdominal Allergies: Coded Allergies: No Known Allergies (Unverified , 01/22/12) Objective Vital Signs Last 24 Hour Vital Signs Date Time Temp Pulse Resp B/P (MAP) Pulse Ox O2 Delivery O2 Flow Rate FiO2 07/15/17 08:00 98.9 81 20 125/73 93 Room Air 98.9 07/15/17 04:00 98.2 81 20 130/64 95 Room Air 98.2 07/15/17 04:00 88 07/15/17 00:00 77 07/15/17 00:00 97.7 80 20 115/66 98 Room Air 97.7 07/14/17 20:00 86 07/14/17 20:00 97.9 83 20 123/65 98 Room Air 97.9 07/14/17 16:00 86 07/14/17 12:00 86 Height (Feet): 5 Height (Inches): 5.00 Weight (Pounds): 120 Respiratory/Chest: lungs clear Cardiovascular: normal rate, regular rhythm, no gallop/murmur Laboratory Tests Test 07/14/17 14:40 07/15/17 07:50 White Blood Count 11.3 K/UL (4.8-10.8) H 10.3 K/UL (4.8-10.8) Red Blood Count 3.81 M/UL (4.20-5.40) L 3.72 M/UL (4.20-5.40) L Hemoglobin 13.0 G/DL (12.0-16.0) 12.5 G/DL (12.0-16.0) Hematocrit 37.3 % (37.0-47.0) 36.3 % (37.0-47.0) L Mean Corpuscular Volume 98 FL (80-99) 98 FL (80-99) Mean Corpuscular Hemoglobin 34.2 PG (27.0-31.0) H 33.7 PG (27.0-31.0) H Mean Corpuscular Hemoglobin Concent 34.9 G/DL (32.0-36.0) 34.5 G/DL (32.0-36.0) Red Cell Distribution Width 10.9 % (11.6-14.8) L 11.3 % (11.6-14.8) L Platelet Count 211 K/UL (150-450) 265 K/UL (150-450) Mean Platelet Volume 6.4 FL (6.5-10.1) L 6.9 FL (6.5-10.1) Neutrophils (%) (Auto) 74.9 % (45.0-75.0) 72.4 % (45.0-75.0) Lymphocytes (%) (Auto) 10.9 % (20.0-45.0) L 9.5 % (20.0-45.0) L Monocytes (%) (Auto) 12.8 % (1.0-10.0) H 16.5 % (1.0-10.0) H Eosinophils (%) (Auto) 0.8 % (0.0-3.0) 1.1 % (0.0-3.0) Basophils (%) (Auto) 0.6 % (0.0-2.0) 0.5 % (0.0-2.0) Sodium Level 135 MMOL/L (136-145) L 135 MMOL/L (136-145) L Potassium Level 4.0 MMOL/L (3.5-5.1) 3.8 MMOL/L (3.5-5.1) Chloride Level 101 MMOL/L (98-107) 102 MMOL/L (98-107) Carbon Dioxide Level 21 MMOL/L (21-32) 18 MMOL/L (21-32) L Anion Gap 13 mmol/L (5-15) 15 mmol/L (5-15) Blood Urea Nitrogen 5 mg/dL (7-18) L 3 mg/dL (7-18) L Creatinine 0.5 MG/DL (0.55-1.30) L 0.5 MG/DL (0.55-1.30) L Estimat Glomerular Filtration Rate > 60 mL/min (>60) > 60 mL/min (>60) Glucose Level 67 MG/DL (74-106) L 58 MG/DL (74-106) L Calcium Level 9.3 MG/DL (8.5-10.1) 8.7 MG/DL (8.5-10.1) Total Bilirubin 0.5 MG/DL (0.2-1.0) Aspartate Amino Transf (AST/SGOT) 22 U/L (15-37) Alanine Aminotransferase (ALT/SGPT) 22 U/L (12-78) Alkaline Phosphatase 134 U/L (46-116) H Total Protein 6.6 G/DL (6.4-8.2) Albumin 2.8 G/DL (3.4-5.0) L Globulin 3.8 g/dL Albumin/Globulin Ratio 0.7 (1.0-2.7) L Current Medications Medications (Trade) Dose Ordered Sig/Hood Route PRN Reason Start Time Stop Time Status Last Admin Dose Admin Acetaminophen (Tylenol) 650 mg Q6H PRN ORAL Mild Pain/Temp > 100.5 07/12/17 20:15 08/11/17 20:14 Acetaminophen/ Hydrocodone Bitart ([place] 5/325) 1 tab Q4H PRN ORAL Severe Pain (Pain Scale 7-10) 07/12/17 20:15 07/19/17 20:14 07/14/17 18:07 Al Hydroxide/Mg Hydroxide (Mylanta) 30 ml BID PRN ORAL stomach upset 07/12/17 20:15 08/11/17 20:14 Docusate Sodium (Colace) 100 mg TWICE A DAY ORAL 07/13/17 09:00 08/12/17 08:59 07/15/17 09:00 Heparin Sodium (Porcine) (Heparin 5000 units/ml) 5,000 units EVERY 12 HOURS SUBQ 07/12/17 21:00 08/11/17 20:59 07/15/17 09:01 Hyoscyamine Sulfate (Levsin) 0.125 mg QIDPRN PRN ORAL ABDOMINAL CRAMPS 07/12/17 20:15 08/11/17 20:14 07/13/17 18:43 Magnesium Hydroxide (Mom) 30 ml DAILYPRN PRN ORAL Constipation 07/12/17 20:15 08/11/17 20:14 Morphine Sulfate (Morphine Sulfate) 2 mg Q4H PRN IVP For Pain 07/13/17 11:00 07/20/17 10:59 07/13/17 10:54 Ondansetron HCl (Zofran) 4 mg Q4HR PRN IVP Nausea & Vomiting 07/12/17 20:15 08/11/17 20:14 07/14/17 06:41 Piperacillin Sod/ Tazobactam Sod 3.375 gm/Sodium Chloride 110 ml @ 27.5 mls/hr Q8H IVPB 07/12/17 22:00 07/19/17 23:59 07/15/17 06:28 Sodium Chloride 1,000 ml @ 100 mls/hr Q10H IV 07/12/17 20:15 08/11/17 20:14 07/15/17 06:35 BRISSA WORLEY Jul 15, 2017 10:44"
[2017-07-15 12:00] VITALS: BP 128/76
--- NOTE | 2017-07-15 13:14 | General Surgery Progress Note ---
General Surgery-Progress Note Subjective Additional Comments still with abdominal pain in LLQ. states pain on and off. no n/v/f/c. had small BM loose. Objective Last 24 Hour Vital Signs Date Time Temp Pulse Resp B/P (MAP) Pulse Ox O2 Delivery O2 Flow Rate FiO2 07/15/17 08:00 98.9 81 20 125/73 93 Room Air 98.9 07/15/17 04:00 98.2 81 20 130/64 95 Room Air 98.2 07/15/17 04:00 88 07/15/17 00:00 77 07/15/17 00:00 97.7 80 20 115/66 98 Room Air 97.7 07/14/17 20:00 86 07/14/17 20:00 97.9 83 20 123/65 98 Room Air 97.9 07/14/17 16:00 86 I&O Intake and Output 07/14/17 07/15/17 19:00 07:00 # Voids 3 2 Drains: none Cardiovascular: RSR Respiratory: clear Abdomen: soft, tenderness, present bowel sounds Extremities: no edema, no tenderness, no cyanosis Laboratory Tests Test 07/14/17 14:40 07/15/17 07:50 White Blood Count 11.3 K/UL (4.8-10.8) H 10.3 K/UL (4.8-10.8) Red Blood Count 3.81 M/UL (4.20-5.40) L 3.72 M/UL (4.20-5.40) L Hemoglobin 13.0 G/DL (12.0-16.0) 12.5 G/DL (12.0-16.0) Hematocrit 37.3 % (37.0-47.0) 36.3 % (37.0-47.0) L Mean Corpuscular Volume 98 FL (80-99) 98 FL (80-99) Mean Corpuscular Hemoglobin 34.2 PG (27.0-31.0) H 33.7 PG (27.0-31.0) H Mean Corpuscular Hemoglobin Concent 34.9 G/DL (32.0-36.0) 34.5 G/DL (32.0-36.0) Red Cell Distribution Width 10.9 % (11.6-14.8) L 11.3 % (11.6-14.8) L Platelet Count 211 K/UL (150-450) 265 K/UL (150-450) Mean Platelet Volume 6.4 FL (6.5-10.1) L 6.9 FL (6.5-10.1) Neutrophils (%) (Auto) 74.9 % (45.0-75.0) 72.4 % (45.0-75.0) Lymphocytes (%) (Auto) 10.9 % (20.0-45.0) L 9.5 % (20.0-45.0) L Monocytes (%) (Auto) 12.8 % (1.0-10.0) H 16.5 % (1.0-10.0) H Eosinophils (%) (Auto) 0.8 % (0.0-3.0) 1.1 % (0.0-3.0) Basophils (%) (Auto) 0.6 % (0.0-2.0) 0.5 % (0.0-2.0) Sodium Level 135 MMOL/L (136-145) L 135 MMOL/L (136-145) L Potassium Level 4.0 MMOL/L (3.5-5.1) 3.8 MMOL/L (3.5-5.1) Chloride Level 101 MMOL/L (98-107) 102 MMOL/L (98-107) Carbon Dioxide Level 21 MMOL/L (21-32) 18 MMOL/L (21-32) L Anion Gap 13 mmol/L (5-15) 15 mmol/L (5-15) Blood Urea Nitrogen 5 mg/dL (7-18) L 3 mg/dL (7-18) L Creatinine 0.5 MG/DL (0.55-1.30) L 0.5 MG/DL (0.55-1.30) L Estimat Glomerular Filtration Rate > 60 mL/min (>60) > 60 mL/min (>60) Glucose Level 67 MG/DL (74-106) L 58 MG/DL (74-106) L Calcium Level 9.3 MG/DL (8.5-10.1) 8.7 MG/DL (8.5-10.1) Total Bilirubin 0.5 MG/DL (0.2-1.0) Aspartate Amino Transf (AST/SGOT) 22 U/L (15-37) Alanine Aminotransferase (ALT/SGPT) 22 U/L (12-78) Alkaline Phosphatase 134 U/L (46-116) H Total Protein 6.6 G/DL (6.4-8.2) Albumin 2.8 G/DL (3.4-5.0) L Globulin 3.8 g/dL Albumin/Globulin Ratio 0.7 (1.0-2.7) L Plan Problems: (1) Acute diverticulitis Assessment & Plan: 62F with acute diverticulitis. Afebrile, HD stable, mild leukocytosis on admission, exam with lower abdominal tenderness, CT with phlegmon. Hinchy 1 classification. Leukocytosis resolved. Still with abdominal tenderness. Exam Stable. engine lathe tender. -Repeat CT Scan with IV/Oral contrast today -NPO -IV fluids -IV abx -will monitor exam. -phlegmon may become abscess that needs to be drained -if decompensates/worsens will require surgery thank you for this consultation. will follow with recs. Malachi Dexter Jul 15, 2017 13:14
[2017-07-15] MEDS ORDERED: NS 275ml ONE (15:32)
[2017-07-15] MEDS ORDERED: Tubing IV Secondary IV ONE (15:32)
[2017-07-15] MEDS ORDERED: 1/2 NS 1000ml IV ONE (15:32)
[2017-07-15 16:00] VITALS: BP 139/67
[2017-07-15 20:00] VITALS: BP 147/72
--- NOTE | 2017-07-15 20:13 | General Progress Note ---
Assessment/Plan Assessment/Plan Assessment - acute diverticulitis with likely phelgmon / microperforation - leukocytosis Recommnedations - NPO - IVF - ABX - serial CBC - serial exam - f/u repeat CT - surgical f/u Subjective Allergies: Coded Allergies: No Known Allergies (Unverified , 01/22/12) Subjective Feels OK / same still with some abd pain No(+) BM second CT ordered for today Objective Last 24 Hour Vital Signs Date Time Temp Pulse Resp B/P (MAP) Pulse Ox O2 Delivery O2 Flow Rate FiO2 07/15/17 12:00 90 07/15/17 12:00 98.9 92 20 128/76 97 Room Air 98.9 07/15/17 08:00 98.9 81 20 125/73 93 Room Air 98.9 07/15/17 08:00 94 07/15/17 04:00 98.2 81 20 130/64 95 Room Air 98.2 07/15/17 04:00 88 07/15/17 00:00 77 07/15/17 00:00 97.7 80 20 115/66 98 Room Air 97.7 Intake and Output 07/14/17 07/15/17 19:00 07:00 # Voids 3 2 Laboratory Tests 07/15/17 07:50: White Blood Count 10.3, Red Blood Count 3.72L, Hemoglobin 12.5, Hematocrit 36.3L , Mean Corpuscular Volume 98, Mean Corpuscular Hemoglobin 33.7H, Mean Corpuscular Hemoglobin Concent 34.5, Red Cell Distribution Width 11.3L, Platelet Count 265, Mean Platelet Volume 6.9, Neutrophils (%) (Auto) 72.4, Lymphocytes (%) (Auto) 9.5L, Monocytes (%) (Auto) 16.5H, Eosinophils (%) (Auto) 1.1, Basophils (%) (Auto) 0.5, Sodium Level 135L, Potassium Level 3.8, Chloride Level 102, Carbon Dioxide Level 18L, Anion Gap 15, Blood Urea Nitrogen 3L, Creatinine 0.5L, Estimat Glomerular Filtration Rate > 60, Glucose Level 58L, Calcium Level 8.7, Total Bilirubin 0.5, Aspartate Amino Transf (AST/SGOT) 22, Alanine Aminotransferase (ALT/SGPT) 22, Alkaline Phosphatase 134H, Total Protein 6.6, Albumin 2.8L, Globulin 3.8, Albumin/Globulin Ratio 0.7L Height (Feet): 5 Height (Inches): 5.00 Weight (Pounds): 120 Objective WDWN AA woman NCAT supple CTA RRR soft ND, (+) TTP LLQ - minimally less than yesterday no edema non focal RICCI KING Jul 15, 2017 20:13
--- NOTE | 2017-07-15 21:00 | General Progress Note ---
Assessment/Plan Assessment/Plan diverticulitis phlegmon htn abx gensurgery fup dw Dr Dexter and Dr Borjas fluids NPO bp controlled dvt and ulcer prphylaxis Subjective Allergies: Coded Allergies: No Known Allergies (Unverified , 01/22/12) Subjective co abdominal pain no n/v small bm Objective Last 24 Hour Vital Signs Date Time Temp Pulse Resp B/P (MAP) Pulse Ox O2 Delivery O2 Flow Rate FiO2 07/15/17 16:00 98.1 96 22 139/67 100 Room Air 98.1 07/15/17 16:00 94 07/15/17 12:00 90 07/15/17 12:00 98.9 92 20 128/76 97 Room Air 98.9 07/15/17 08:00 98.9 81 20 125/73 93 Room Air 98.9 07/15/17 08:00 94 07/15/17 04:00 98.2 81 20 130/64 95 Room Air 98.2 07/15/17 04:00 88 07/15/17 00:00 77 07/15/17 00:00 97.7 80 20 115/66 98 Room Air 97.7 Intake and Output 07/14/17 07/15/17 19:00 07:00 # Voids 3 2 Laboratory Tests 07/15/17 07:50: White Blood Count 10.3, Red Blood Count 3.72L, Hemoglobin 12.5, Hematocrit 36.3L , Mean Corpuscular Volume 98, Mean Corpuscular Hemoglobin 33.7H, Mean Corpuscular Hemoglobin Concent 34.5, Red Cell Distribution Width 11.3L, Platelet Count 265, Mean Platelet Volume 6.9, Neutrophils (%) (Auto) 72.4, Lymphocytes (%) (Auto) 9.5L, Monocytes (%) (Auto) 16.5H, Eosinophils (%) (Auto) 1.1, Basophils (%) (Auto) 0.5, Sodium Level 135L, Potassium Level 3.8, Chloride Level 102, Carbon Dioxide Level 18L, Anion Gap 15, Blood Urea Nitrogen 3L, Creatinine 0.5L, Estimat Glomerular Filtration Rate > 60, Glucose Level 58L, Calcium Level 8.7, Total Bilirubin 0.5, Aspartate Amino Transf (AST/SGOT) 22, Alanine Aminotransferase (ALT/SGPT) 22, Alkaline Phosphatase 134H, Total Protein 6.6, Albumin 2.8L, Globulin 3.8, Albumin/Globulin Ratio 0.7L Height (Feet): 5 Height (Inches): 5.00 Weight (Pounds): 120 General Appearance: WD/WN, no apparent distress Cardiovascular: normal rate Respiratory/Chest: lungs clear Abdomen: soft Objective abdomen pos tenderlness left lower qudrant no rebound or guarding CLARITZA FREED Jul 15, 2017 21:00
[2017-07-16] VITALS: BP 141/87
[2017-07-16 04:00] VITALS: BP 136/74
[2017-07-16] MEDS: Zoysn 3.37gm in NS 100ML IVPB SCH ×3 (05:44→21:16)
[2017-07-16 08:00] VITALS: BP 139/62
[2017-07-16] MEDS: Docusate 100mg cap ORAL SCH ×2 (08:20→17:53)
[2017-07-16] MEDS: Heparin 5000 units/ml inj SUBQ SCH ×2 (08:24→21:00)
--- NOTE | 2017-07-16 09:27 | General Progress Note ---
Assessment/Plan Assessment/Plan Assessment - acute diverticulitis with likely phelgmon / microperforation - leukocytosis and low grade temp noted Recommnedations - NPO - IVF - ABX - serial CBC - serial exam - f/u repeat CT final reading - surgical f/u Subjective Endocrine: Denies: unexplained weight loss Allergies: Coded Allergies: No Known Allergies (Unverified , 01/22/12) Subjective Feels OK / same still with LLQ pain (+) loose BM CT done, results pending Objective Last 24 Hour Vital Signs Date Time Temp Pulse Resp B/P (MAP) Pulse Ox O2 Delivery O2 Flow Rate FiO2 07/16/17 07:52 89 07/16/17 04:00 100.0 83 18 136/74 100 Room Air 100.0 07/16/17 04:00 82 07/16/17 00:00 99.0 100 18 141/87 99 Room Air 99.0 07/16/17 00:00 82 07/15/17 20:00 98.1 83 18 147/72 100 Room Air 98.1 07/15/17 16:00 98.1 96 22 139/67 100 Room Air 98.1 07/15/17 16:00 94 07/15/17 12:00 90 07/15/17 12:00 98.9 92 20 128/76 97 Room Air 98.9 Intake and Output 07/15/17 07/16/17 19:00 07:00 Intake Total 200 ml Balance 200 ml Intake Oral 200 ml # Voids 3 # Bowel Movements 2 2 Height (Feet): 5 Height (Inches): 5.00 Weight (Pounds): 120 Objective WDWN AA woman NCAT supple CTA RRR soft ND, (+) TTP LLQ - minimally less than yesterday no edema non focal RICCI KING Jul 16, 2017 09:27
--- NOTE | 2017-07-16 09:47 | Diagnostic Imaging Report ---
Indication: Abdominal pain Technique: Continuous helical transaxial imaging of the abdomen and pelvis was obtained from the lung bases to the pubic symphysis during intravenous contrast administration. Coronal 2-D reformats were also obtained. Study obtained in a Siemens sensation [address] Automatic Exposure Control was utilized. Total Dose length Product (DLP): 452.[address] Dose Index Volume (CTDIvol): 9.33 mGy Comparison: 07/12/2017 Findings: There is a circumscribed fluid collection measuring about 4 to 5 cm consistent with abscess containing a small focus of air within the cavity, seen just anterior to the sigmoid colon within the mid pelvis region. The collection is much better defined over the last 3 days compared to the prior CT at which point the collection appeared more ill-defined. Currently the collection is well-defined and there is a distinct wall present. The abscess is not accessible percutaneously with no window visualized as there are multiple loops of small bowel flanking the anterior part of the abscess. Posteriorly the sigmoid colon is noted. No evidence of bowel obstruction. Solid organs appear unremarkable. No hydronephrosis seen. Uterus noted. Suspected uterine fibroids. Surgical clips in the right hemipelvis noted. Lung bases remain clear. IMPRESSION: 4 to 5 cm lower abdominal perisigmoid abscess. The collection is not accessible percutaneously. Other incidental findings as above The CT scanner at [facility] is accredited by the [employer] and the scans are performed using dose optimization techniques as appropriate to a performed exam including Automatic Exposure control.
[2017-07-16 10:21] LABS: BASOPHILS % (AUTO) 1.3 % (0.0-2.0); HEMATOCRIT 41.8 % (37.0-47.0); HEMOGLOBIN 14.3 G/DL (12.0-16.0); LYMPHOCYTES % (AUTO) 15.3 % (20.0-45.0); MEAN CORPUSCULAR VOLUME 98 FL (80-99); MONOCYTES % (AUTO) 16.3 % (1.0-10.0); NEUTROPHILS % (AUTO) 66.2 % (45.0-75.0); PLATELET COUNT 333 K/UL (150-450); RED BLOOD COUNT 4.29 M/UL (4.20-5.40); RED CELL DISTRIBUTION WIDTH 11.1 % (11.6-14.8); WHITE BLOOD COUNT 9.5 K/UL (4.8-10.8)
[2017-07-16 10:48] LABS: ALANINE AMINOTRANSFERASE 31 U/L (12-78); ALBUMIN 3.1 G/DL (3.4-5.0); ALBUMIN/GLOBULIN RATIO 0.6 (1.0-2.7); ALKALINE PHOSPHATASE 148 U/L (46-116); ANION GAP 16 mmol/L (5-15); ASPARTATE AMINO TRANSFERASE 34 U/L (15-37); BILIRUBIN,TOTAL 0.5 MG/DL (0.2-1.0); BLOOD UREA NITROGEN 3 mg/dL (7-18); CALCIUM 9.7 MG/DL (8.5-10.1); CARBON DIOXIDE 18 MMOL/L (21-32); CHLORIDE 101 MMOL/L (98-107); CREATININE 0.6 MG/DL (0.55-1.30); POTASSIUM 3.8 MMOL/L (3.5-5.1); SODIUM 134 MMOL/L (136-145)
[2017-07-16 12:00] VITALS: BP 138/75
--- NOTE | 2017-07-16 12:14 | Infectious Diseases Prog Note ---
Assessment/Plan Assessment/Plan A 1. diverticulitis with perforation & abscess 2. HPN 3. leucocytosis resolved P 1. continue zosyn 2. plan per surgery Subjective ROS Limited/Unobtainable: No Constitutional: Reports: fever, other - low grade Gastrointestinal/Abdominal: Reports: nausea, vomiting, diarrhea, other - after getting oral contrast for CT, LLQ pain Genitourinary: Reports: no symptoms Allergies: Coded Allergies: No Known Allergies (Unverified , 01/22/12) Objective Vital Signs Last 24 Hour Vital Signs Date Time Temp Pulse Resp B/P (MAP) Pulse Ox O2 Delivery O2 Flow Rate FiO2 07/16/17 12:00 98.6 83 18 138/75 100 Room Air 98.6 07/16/17 08:00 98.2 86 18 139/62 100 Room Air 98.2 07/16/17 07:52 89 07/16/17 04:00 100.0 83 18 136/74 100 Room Air 100.0 07/16/17 04:00 82 07/16/17 00:00 99.0 100 18 141/87 99 Room Air 99.0 07/16/17 00:00 82 07/15/17 20:00 98.1 83 18 147/72 100 Room Air 98.1 07/15/17 16:00 98.1 96 22 139/67 100 Room Air 98.1 07/15/17 16:00 94 Height (Feet): 5 Height (Inches): 5.00 Weight (Pounds): 120 General Appearance: no acute distress HEENT: mucous membranes moist Respiratory/Chest: lungs clear Cardiovascular: normal rate Abdomen: other - soft mildy tender Extremities: no edema Neurologic/Psychiatric: alert, oriented x 3, responsive Laboratory Tests Test 07/16/17 09:25 White Blood Count 9.5 K/UL (4.8-10.8) Red Blood Count 4.29 M/UL (4.20-5.40) Hemoglobin 14.3 G/DL (12.0-16.0) Hematocrit 41.8 % (37.0-47.0) Mean Corpuscular Volume 98 FL (80-99) Mean Corpuscular Hemoglobin 33.4 PG (27.0-31.0) H Mean Corpuscular Hemoglobin Concent 34.3 G/DL (32.0-36.0) Red Cell Distribution Width 11.1 % (11.6-14.8) L Platelet Count 333 K/UL (150-450) Mean Platelet Volume 6.2 FL (6.5-10.1) L Neutrophils (%) (Auto) 66.2 % (45.0-75.0) Lymphocytes (%) (Auto) 15.3 % (20.0-45.0) L Monocytes (%) (Auto) 16.3 % (1.0-10.0) H Eosinophils (%) (Auto) 1.0 % (0.0-3.0) Basophils (%) (Auto) 1.3 % (0.0-2.0) Sodium Level 134 MMOL/L (136-145) L Potassium Level 3.8 MMOL/L (3.5-5.1) Chloride Level 101 MMOL/L (98-107) Carbon Dioxide Level 18 MMOL/L (21-32) L Anion Gap 16 mmol/L (5-15) H Blood Urea Nitrogen 3 mg/dL (7-18) L Creatinine 0.6 MG/DL (0.55-1.30) Estimat Glomerular Filtration Rate > 60 mL/min (>60) Glucose Level 71 MG/DL (74-106) L Calcium Level 9.7 MG/DL (8.5-10.1) Total Bilirubin 0.5 MG/DL (0.2-1.0) Aspartate Amino Transf (AST/SGOT) 34 U/L (15-37) Alanine Aminotransferase (ALT/SGPT) 31 U/L (12-78) Alkaline Phosphatase 148 U/L (46-116) H Total Protein 8.1 G/DL (6.4-8.2) Albumin 3.1 G/DL (3.4-5.0) L Globulin 5.0 g/dL Albumin/Globulin Ratio 0.6 (1.0-2.7) L Current Medications Medications (Trade) Dose Ordered Sig/Hodo Route PRN Reason Start Time Stop Time Status Last Admin Dose Admin Acetaminophen (Tylenol) 650 mg Q6H PRN ORAL Mild Pain/Temp > 100.5 07/12/17 20:15 08/11/17 20:14 Acetaminophen/ Hydrocodone Bitart ([place]well 5/325) 1 tab Q4H PRN ORAL Severe Pain (Pain Scale 7-10) 07/12/17 20:15 07/19/17 20:14 07/14/17 18:07 Al Hydroxide/Mg Hydroxide (Mylanta) 30 ml BID PRN ORAL stomach upset 07/12/17 20:15 08/11/17 20:14 Docusate Sodium (Colace) 100 mg TWICE A DAY ORAL 07/13/17 09:00 08/12/17 08:59 07/15/17 09:00 Heparin Sodium (Porcine) (Heparin 5000 units/ml) 5,000 units EVERY 12 HOURS SUBQ 07/12/17 21:00 08/11/17 20:59 07/16/17 08:24 Hyoscyamine Sulfate (Levsin) 0.125 mg QIDPRN PRN ORAL ABDOMINAL CRAMPS 07/12/17 20:15 08/11/17 20:14 07/13/17 18:43 Magnesium Hydroxide (Mom) 30 ml DAILYPRN PRN ORAL Constipation 07/12/17 20:15 08/11/17 20:14 Morphine Sulfate (Morphine Sulfate) 2 mg Q4H PRN IVP For Pain 07/13/17 11:00 07/20/17 10:59 07/13/17 10:54 Ondansetron HCl (Zofran) 4 mg Q4HR PRN IVP Nausea & Vomiting 07/12/17 20:15 08/11/17 20:14 07/15/17 11:09 Piperacillin Sod/ Tazobactam Sod 3.375 gm/Sodium Chloride 110 ml @ 27.5 mls/hr Q8H IVPB 07/12/17 22:00 07/19/17 23:59 07/16/17 05:44 Sodium Chloride 1,000 ml @ 100 mls/hr Q10H IV 07/12/17 20:15 08/11/17 20:14 07/16/17 04:21 KAE BUTTERFIELD Jul 16, 2017 12:14
--- NOTE | 2017-07-16 15:00 | General Surgery Progress Note ---
General Surgery-Progress Note Subjective Additional Comments still with pain in pelvis/LLQ. no n/v. loose BM's. Repeat CT with 5-6cm abscess Objective Last 24 Hour Vital Signs Date Time Temp Pulse Resp B/P (MAP) Pulse Ox O2 Delivery O2 Flow Rate FiO2 07/16/17 12:00 98.6 83 18 138/75 100 Room Air 98.6 07/16/17 11:49 90 07/16/17 08:00 98.2 86 18 139/62 100 Room Air 98.2 07/16/17 07:52 89 07/16/17 04:00 100.0 83 18 136/74 100 Room Air 100.0 07/16/17 04:00 82 07/16/17 00:00 99.0 100 18 141/87 99 Room Air 99.0 07/16/17 00:00 82 07/15/17 20:00 98.1 83 18 147/72 100 Room Air 98.1 07/15/17 16:00 98.1 96 22 139/67 100 Room Air 98.1 07/15/17 16:00 94 I&O Intake and Output 07/15/17 07/16/17 19:00 07:00 Intake Total 200 ml Balance 200 ml Intake Oral 200 ml # Voids 3 # Bowel Movements 2 2 Drains: none Cardiovascular: RSR Respiratory: clear Abdomen: soft, tenderness, present bowel sounds Extremities: no edema, no tenderness, no cyanosis Laboratory Tests Test 07/16/17 09:25 White Blood Count 9.5 K/UL (4.8-10.8) Red Blood Count 4.29 M/UL (4.20-5.40) Hemoglobin 14.3 G/DL (12.0-16.0) Hematocrit 41.8 % (37.0-47.0) Mean Corpuscular Volume 98 FL (80-99) Mean Corpuscular Hemoglobin 33.4 PG (27.0-31.0) H Mean Corpuscular Hemoglobin Concent 34.3 G/DL (32.0-36.0) Red Cell Distribution Width 11.1 % (11.6-14.8) L Platelet Count 333 K/UL (150-450) Mean Platelet Volume 6.2 FL (6.5-10.1) L Neutrophils (%) (Auto) 66.2 % (45.0-75.0) Lymphocytes (%) (Auto) 15.3 % (20.0-45.0) L Monocytes (%) (Auto) 16.3 % (1.0-10.0) H Eosinophils (%) (Auto) 1.0 % (0.0-3.0) Basophils (%) (Auto) 1.3 % (0.0-2.0) Sodium Level 134 MMOL/L (136-145) L Potassium Level 3.8 MMOL/L (3.5-5.1) Chloride Level 101 MMOL/L (98-107) Carbon Dioxide Level 18 MMOL/L (21-32) L Anion Gap 16 mmol/L (5-15) H Blood Urea Nitrogen 3 mg/dL (7-18) L Creatinine 0.6 MG/DL (0.55-1.30) Estimat Glomerular Filtration Rate > 60 mL/min (>60) Glucose Level 71 MG/DL (74-106) L Calcium Level 9.7 MG/DL (8.5-10.1) Total Bilirubin 0.5 MG/DL (0.2-1.0) Aspartate Amino Transf (AST/SGOT) 34 U/L (15-37) Alanine Aminotransferase (ALT/SGPT) 31 U/L (12-78) Alkaline Phosphatase 148 U/L (46-116) H Total Protein 8.1 G/DL (6.4-8.2) Albumin 3.1 G/DL (3.4-5.0) L Globulin 5.0 g/dL Albumin/Globulin Ratio 0.6 (1.0-2.7) L Plan Problems: (1) Acute diverticulitis Assessment & Plan: 62F with acute diverticulitis. Afebrile, HD stable, mild leukocytosis on admission, exam with lower abdominal tenderness, CT with phlegmon. Hinchy 1 classification. Leukocytosis resolved. Still with abdominal tenderness. -Repeat CT Scan with contrast demonstrated phlegmon maturing to 5-6cm abscess. unfortunately abscess not amenable to percutaneous drainage given location and surrounding bowel. Patient still runner and CT as above. not improving overall and unfortunately failing medical management. Spoke with patient and family about findings. At this time would recommend surgery given above. Will attempt diagnostic laparoscopy, possible lap vs open colectomy, possible ostomy. Patient needs time to think. -NPO -IV fluids -IV abx -surgical planning thank you for this consultation. will follow with recs. Malachi Dexter Jul 16, 2017 15:00
[2017-07-16 16:00] VITALS: BP 138/83
--- NOTE | 2017-07-16 17:42 | Cardiology Report ---
APPROVED REPORT EKG Measurement Heart [id number] Normal sinus rhythm Possible Left atrial enlargement Left ventricular hypertrophy Abnormal ECG
[2017-07-16 20:00] VITALS: BP 146/76
--- NOTE | 2017-07-16 21:27 | General Progress Note ---
Assessment/Plan Assessment/Plan diverticulitis phlegmon htn abx gensurgery fup dw Dr Dexter and Dr Borjas fluids NPO fup ct scan diet as per surgery bp controlled dvt and ulcer prphylaxis Subjective Allergies: Coded Allergies: No Known Allergies (Unverified , 01/22/12) Subjective co abdominal pain no n/v pos bm want to eat Objective Last 24 Hour Vital Signs Date Time Temp Pulse Resp B/P (MAP) Pulse Ox O2 Delivery O2 Flow Rate FiO2 07/16/17 16:00 98.6 84 18 138/83 99 Room Air 98.6 07/16/17 15:41 92 07/16/17 12:00 98.6 83 18 138/75 100 Room Air 98.6 07/16/17 11:49 90 07/16/17 08:00 98.2 86 18 139/62 100 Room Air 98.2 07/16/17 07:52 89 07/16/17 04:00 100.0 83 18 136/74 100 Room Air 100.0 07/16/17 04:00 82 07/16/17 00:00 99.0 100 18 141/87 99 Room Air 99.0 07/16/17 00:00 82 Intake and Output 07/15/17 07/16/17 19:00 07:00 Intake Total 200 ml Balance 200 ml Intake Oral 200 ml # Voids 3 # Bowel Movements 2 2 Laboratory Tests 07/16/17 09:25: White Blood Count 9.5, Red Blood Count 4.29, Hemoglobin 14.3, Hematocrit 41.8, Mean Corpuscular Volume 98, Mean Corpuscular Hemoglobin 33.4H, Mean Corpuscular Hemoglobin Concent 34.3, Red Cell Distribution Width 11.1L, Platelet Count 333, Mean Platelet Volume 6.2L, Neutrophils (%) (Auto) 66.2, Lymphocytes (%) (Auto) 15.3L, Monocytes (%) (Auto) 16.3H, Eosinophils (%) (Auto) 1.0, Basophils (%) ( Auto) 1.3, Sodium Level 134L, Potassium Level 3.8, Chloride Level 101, Carbon Dioxide Level 18L, Anion Gap 16H, Blood Urea Nitrogen 3L, Creatinine 0.6, Estimat Glomerular Filtration Rate > 60, Glucose Level 71L, Calcium Level 9.7, Total Bilirubin 0.5, Aspartate Amino Transf (AST/SGOT) 34, Alanine Aminotransferase (ALT/SGPT) 31, Alkaline Phosphatase 148H, Total Protein 8.1, Albumin 3.1L, Globulin 5.0, Albumin/Globulin Ratio 0.6L Height (Feet): 5 Height (Inches): 5.00 Weight (Pounds): 120 General Appearance: WD/WN Cardiovascular: normal rate Respiratory/Chest: lungs clear Objective abdomen pos tenderlness left lower qudrant no rebound or guarding CLARITZA FREED Jul 16, 2017 21:27
[2017-07-17] VITALS (13 sets, daily range): BP systolic 112–183; BP diastolic 62–81
[2017-07-17] MEDS: Zoysn 3.37gm in NS 100ML IVPB SCH ×3 (06:54→22:10)
[2017-07-17] MEDS: Docusate 100mg cap ORAL SCH (08:41)
[2017-07-17] MEDS: Heparin 5000 units/ml inj SUBQ SCH ×2 (08:42→21:00)
[2017-07-17 09:00] LABS: BASOPHILS % (AUTO) 1.2 % (0.0-2.0); EOSINOPHILS % (AUTO) 0.9 % (0.0-3.0); HEMATOCRIT 41.7 % (37.0-47.0); HEMOGLOBIN 14.4 G/DL (12.0-16.0); LYMPHOCYTES % (AUTO) 12.4 % (20.0-45.0); MEAN CORPUSCULAR VOLUME 95 FL (80-99); MONOCYTES % (AUTO) 15.1 % (1.0-10.0); NEUTROPHILS % (AUTO) 70.3 % (45.0-75.0); PLATELET COUNT 367 K/UL (150-450); RED BLOOD COUNT 4.37 M/UL (4.20-5.40); RED CELL DISTRIBUTION WIDTH 11.1 % (11.6-14.8); WHITE BLOOD COUNT 7.1 K/UL (4.8-10.8)
[2017-07-17 09:18] LABS: ANION GAP 16 mmol/L (5-15); BLOOD UREA NITROGEN 3 mg/dL (7-18); CALCIUM 9.5 MG/DL (8.5-10.1); CARBON DIOXIDE 20 MMOL/L (21-32); CHLORIDE 100 MMOL/L (98-107); CREATININE 0.6 MG/DL (0.55-1.30); POTASSIUM 3.4 MMOL/L (3.5-5.1); SODIUM 136 MMOL/L (136-145)
[2017-07-17] MEDS ORDERED: LR 1000ml 1,000 ML IVLG SCH (09:51)
--- NOTE | 2017-07-17 09:51 | 48 Hour Post Anesthesia Eval ---
Post Anesthesia Evaluation Procedure: Lap Colectomy Date of Evaluation: Jul 19, 2017 Time of Evaluation: 09:50 Blood Pressure Systolic: 140 0: 90 Pulse Rate: 90 Respiratory Rate: 18 Temperature (Fahrenheit): 98 O2 Sat by Pulse Oximetry: 99 Airway: patent Nausea: No Vomiting: No Hydration Status: adequate Mental Status/LOC: patient returned to baseline Post-Anesthesia Complications: none Follow-up care needed: N/A Oni Karimi M.D. Jul 17, 2017 09:51
[2017-07-17] MEDS ORDERED: Hydromorphone 0.5mg/0.5ml inj IVP PRN (10:00)
[2017-07-17] MEDS ORDERED: Midazolam 2mg/2ml Inj IVP PRN ×2 (10:00→16:21)
[2017-07-17] MEDS ORDERED: fentaNYL 100 mcg/2 mL IV PRN ×2 (10:00→16:21)
[2017-07-17] MEDS: Morphine Sulfate 4mg/ml Inj IVP PRN (10:26)
--- NOTE | 2017-07-17 11:26 | Diagnostic Imaging Report ---
Indication: Dyspnea Comparison: 09/11/2015 A single view chest radiograph was obtained. Findings: Cardiomediastinal appearance is within normal limits for age. Pulmonary vascularity is appropriate. The diaphragmatic contour is smooth and costophrenic angles are sharp. No pleural effusions are identified. Old rib fractures are noted on the left. Impression: No acute findings
[2017-07-17] MEDS ORDERED: Sterile Water Irrig 1000ml IRRIG ONE (12:00)
[2017-07-17] MEDS ORDERED: LR 1000ml ONE (12:00)
[2017-07-17] MEDS ORDERED: Glycopyrrolate 0.2mg/ml 1ml Vial ONE (12:00)
[2017-07-17] MEDS ORDERED: NS Irrig 1000ml ONE (12:00)
[2017-07-17] MEDS ORDERED: Midazolam 2mg/2ml Inj ONE (12:00)
[2017-07-17] MEDS ORDERED: Dexamethasone 4mg/ml vial ONE (12:00)
[2017-07-17] MEDS ORDERED: fentaNYL 100 mcg/2 mL IV ONE (12:00)
[2017-07-17] MEDS ORDERED: Ketorolac 30mg Inj ONE (12:00)
[2017-07-17] MEDS ORDERED: Morphine Sulfate 10mg/ml Inj ONE (12:00)
[2017-07-17] MEDS ORDERED: Metoclopramide 10mg/2ml Inj ONE (12:00)
[2017-07-17] MEDS ORDERED: Zemuron 50mg/5ml Inj IV ONE (12:00)
[2017-07-17] MEDS ORDERED: EPINEPHrine 1mg/1ml Amp ONE (12:04)
[2017-07-17] MEDS ORDERED: Bupivacaine 0.25% Inj 30ml INJ ONE (12:04)
--- NOTE | 2017-07-17 12:17 | General Progress Note ---
Assessment/Plan Assessment/Plan Assessment - acute diverticulitis with likely phelgmon / microperforation / abscess - leukocytosis and low grade temp Recommnedations - NPO - IVF - ABX - serial CBC - surgical therapy today. Subjective Allergies: Coded Allergies: No Known Allergies (Unverified , 01/22/12) Subjective CT noted d/w Dr Dexter Patient seen in preop area for surgery today Objective Last 24 Hour Vital Signs Date Time Temp Pulse Resp B/P (MAP) Pulse Ox O2 Delivery O2 Flow Rate FiO2 07/17/17 09:51 208.4 90 18 99 07/17/17 08:00 98.6 87 21 136/77 97 Room Air 98.6 07/17/17 04:00 98.4 90 20 140/77 99 Room Air 98.4 07/17/17 04:00 85 07/17/17 00:00 98.6 91 20 148/77 98 Room Air 98.6 07/17/17 00:00 87 07/16/17 20:00 89 07/16/17 20:00 100.2 78 20 146/76 99 Room Air 100.2 07/16/17 16:00 98.6 84 18 138/83 99 Room Air 98.6 07/16/17 15:41 92 Intake and Output 07/16/17 07/17/17 19:00 07:00 Intake Total 900 ml 1257.0 ml Output Total 200 ml Balance 700 ml 1257.0 ml IV Total 900 ml 1257.0 ml Output Urine Total 200 ml # Voids 2 # Bowel Movements 3 1 Laboratory Tests 07/17/17 08:34: White Blood Count 7.1, Red Blood Count 4.37, Hemoglobin 14.4, Hematocrit 41.7, Mean Corpuscular Volume 95, Mean Corpuscular Hemoglobin 32.8H, Mean Corpuscular Hemoglobin Concent 34.4, Red Cell Distribution Width 11.1L, Platelet Count 367, Mean Platelet Volume 6.7, Neutrophils (%) (Auto) 70.3, Lymphocytes (%) (Auto) 12.4L, Monocytes (%) (Auto) 15.1H, Eosinophils (%) (Auto) 0.9, Basophils (%) ( Auto) 1.2, Prothrombin Time 10.5, Prothromb Time International Ratio 1.0, Activated Partial Thromboplast Time 36H, Sodium Level 136, Potassium Level 3.4L , Chloride Level 100, Carbon Dioxide Level 20L, Anion Gap 16H, Blood Urea Nitrogen 3L, Creatinine 0.6, Estimat Glomerular Filtration Rate > 60, Glucose Level 83, Calcium Level 9.5 Height (Feet): 5 Height (Inches): 6.00 Weight (Pounds): 120 Objective WDWN AA woman NCAT supple CTA RRR soft ND, (+) TTP LLQ - minimally less than yesterday no edema non focal RICCI KING Jul 17, 2017 12:17
[2017-07-17] MEDS ORDERED: 1/2 NS 1000ml IV ONE (12:27)
[2017-07-17] MEDS ORDERED: Tubing IV Secondary IV ONE (12:27)
[2017-07-17] MEDS ORDERED: NS 275ml ONE (12:27)
--- NOTE | 2017-07-17 12:41 | Pre-Procedure Note/Attestation ---
Pre-Procedure Note/Attestation Complete Prior to Procedure Planned Procedure: not applicable Procedure Narrative: laparoscopic possible open colectomy; possible ostomy Indications for Procedure Pre-Operative Diagnosis: perforated sigmoid diverticulitis Attestation I attest that I discussed the nature of the procedure; its benefits; risks and complications; and alternatives (and the risks and benefits of such alternatives ), prior to the procedure, with the patient (or the patient's legal patient intake representative). I attest that, if there was a reasonable possibility of needing a blood transfusion, the patient (or the patient's legal patient intake representative) was given the [facility] standardized written summary, pursuant to the Dinh Emre Blood Safety Act ([place] Health and Safety Code # 1645, as amended). I attest that I re-evaluated the patient just prior to the surgery and that there has been no change in the patient's H&P, except as documented below: Malachi Dexter Jul 17, 2017 12:41
[2017-07-17] MEDS ORDERED: NS Irrig 1000ml IRRIG ONE (15:14)
[2017-07-17] MEDS ORDERED: PCA Education Pamphlet MISC ONE ×2 (15:45→21:00)
[2017-07-17] MEDS ORDERED: Rate Change PCA 1 Each MISC PRN ×2 (15:45→17:15)
[2017-07-17] MEDS ORDERED: Morphine Sulfate 2mg/ml Inj IVP PRN (15:45)
[2017-07-17] MEDS ORDERED: Acetaminophen (Non formulary) 100 ML IV ONE (16:00)
[2017-07-17] MEDS ORDERED: DiphenhydrAMINE 50mg/ml Inj IVP PRN ×2 (16:37→17:00)
[2017-07-17] MEDS ORDERED: LORazepam 1mg tab ORAL PRN (16:37)
[2017-07-17] MEDS ORDERED: Morphine Sulfate 4mg/ml Inj IVP PRN ×2 (17:00)
[2017-07-17] MEDS ORDERED: PCA Morphine 1mg/ml 30 ML IV PRN ×2 (17:00→17:15)
[2017-07-17] MEDS ORDERED: Naloxone 0.4mg/ml Inj IVP PRN (17:00)
[2017-07-17] MEDS ORDERED: Ketorolac 30mg Inj IV PRN (17:00)
--- NOTE | 2017-07-17 17:06 | Brief Operative Note ---
Immediate Post Operative Note Operative Note Pre-op Diagnosis: perforated sigmoid diverticulitis Procedure: 1. laparoscopic converted to open sigmoid colectomy 2. evacuation of intraabominal abscess 3. appendectomy 4. lysis of adhesions 5. biopsy of abdominal lymph node and mass. Post-op Diagnosis: 1. perforated sigmoid diverticulitis 2. large intraabdominal abscess 3. omental lymphadenopathy 4. uterine mass 5. inflamed appendix Surgeon: josh Anesthesiologist: gonzales Anesthesia: general Specimen: yes Complications: none Condition: stable Fluids: see records Estimated Blood Loss: volume - 100 Drains: LUNA Implant(s) used?: No Malachi Dexter Jul 17, 2017 17:06
[2017-07-17] MEDS ORDERED: Morphine Sulfate 4mg/ml Inj SUBQ PRN (17:15)
[2017-07-17] MEDS ORDERED: PCA shift volume MISC SCH (19:00)
[2017-07-17] MEDS: PCA shift volume MISC SCH (19:45)
[2017-07-17] MEDS: D5 1/2NS w/KCl 20mEq 1,000 ML IV SCH (22:11)
--- NOTE | 2017-07-17 23:00 | Operative Note - Dictated ---
DATE OF OPERATION: 07/17/2017 PREOPERATIVE DIAGNOSIS: Perforated sigmoid diverticulitis. POSTOPERATIVE DIAGNOSES: 1. Perforated sigmoid diverticulitis. 2. Large intra-abdominal abscess. 3. Omental lymphadenopathy. 4. Uterine mass. 5. Inflamed appendix. PROCEDURE PERFORMED: 1. Laparoscopic converted to open sigmoid colectomy. 2. Evacuation of intra-abdominal abscess. 3. Appendectomy. 4. Lysis of adhesions. 5. Biopsy of abdominal lymph node. ATTENDING SURGEON: Malachi Dexter M.D. FOWL BLOOD TESTER: None. ANESTHESIOLOGIST: Oni Karimi M.D. 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 COMPLICATIONS: None. ESTIMATED BLOOD LOSS: 100 mL. IV FLUIDS: Please see anesthesia records. DRAINS: A 19-Malian Antonio drain left in the pelvis. IMPLANTS: None. WOUND CONSULTATION: Class 3. SPECIMENS: 1. Sigmoid colon. 2. Appendix debris. 3. Omental lymph node. 4. Uterine mass abutting the uterus. INDICATIONS FOR PROCEDURE: This is a 62-year-old female, who was admitted on 07/12/2017 for worsening abdominal pain. At that time, the patient had left lower quadrant/pelvic abdominal pain for approximately three to four days, which was worsening and requiring her to come to the emergency for further evaluation. CT of the abdomen and pelvis performed identified a 2 to 3 cm pericolonic phlegmon around the sigmoid colon likely Hinchey I sigmoid diverticulitis with significant tenderness on examination. At this time, the patient was admitted to the hospital for intravenous antibiotics and care, given that she had failed medical management as an outpatient further proceeding prior. While in the hospital, the patient's medical and conservative management was attempted, but the patient did not respond and progressed to have persist and sometimes worsening abdominal pain. Therefore, a CT scan was repeated identifying that the 2 to 3 cm phlegmon had enlarged to a 5 to 6 cm abscess with significant inflammatory tissue surrounding it and unfortunately inability to drain via Interventional Radiology, given the location of the abscess and surrounding structures. At this time, given clinical findings, examination, and the stated above history, surgery was indicated and recommended. I discussed with the patient and the family on one occasion. The risks, benefits, and alternatives of surgical intervention including infection, bleeding, damage to internal organs, and the potential for complications and even a colostomy if necessary. Of note over the past three years, the patient has had a significant amount of unexplained weight loss and workup has thus far been negative. We discussed evaluation of the remaining abdominal cavity for any potential insight as to why this could be potentially happening and biopsies or pictures if necessary. The patient expressed understanding as well as with the family and consented to surgery, which was performed on 07/17/2017. OPERATIVE NOTE: The patient was taken to the operating room and placed on the operating table in supine position. Bilateral arms out. All bony prominences were well padded. A preoperative time-out was taken identifying the patient, procedure, operative staff, and surgical staff. The patient was on scheduled IV Zosyn prior to entering the operating room for few active inflammatory process. General anesthesia was induced and the patient was intubated. SCDs were placed. Moscoso catheter was inserted using standard surgical sterile technique. The patient was placed in lithotomy position and both arms were tucked. The abdomen was then clipped, prepped, and draped in the standard surgical fashion. An infraumbilical midline vertical incision was made and carried down to the fascia made using a fresh 15 blade and carried down to the fascia, which was elevated and incised. Entry into the abdomen was performed using open Zainab technique without complication. A 12 mm Zainab trocar was inserted under direct visualization. The abdomen insufflated to 12 to 15 mmHg. The patient tolerated the insufflation well. Secondary trocars were placed beginning with a 5 mm suprapubic trocar and a 5 mm right lower quadrant trocar. The laparoscopic graspers were used and the bowel was manipulated to identify the abdominal contents. In the right upper quadrant, there were no significant abnormalities in the liver as well as in the left upper quadrant. In the omentum, some lymph nodes were noted and plan was to biopsy these lymph nodes prior to ending the procedure. In the pelvis, there was a significant amount of inflammatory tissue with bulging near the midline with likely abscess to be identified. The splenic flexure and descending colon otherwise looked normal. There was a significant amount of inflammatory as well as prior scar tissue noted in the pelvis from patient's prior abdominal surgery. Lysis of adhesions was performed safely mobilizing the small bowel and sigmoid colon from the uterus and pelvic sidewall organs. Once this was completed, there was matting of the small bowel to the abscess cavity as well as the sigmoid colon. The abscess was identified and entered and evacuated. Cultures were sent to pathology for review. At this time, the abscess cavity was noted to have a very thick wall with a lot of inflammatory tissue and densely adhesed to the mesentery of the small bowel and some of the small bowel. In identifying this and all the inflammatory tissues, I did not feel that it would be safe to proceed with laparoscopic resection, given the potential for small bowel injury enterotomies and dense inflammatory tissue and the sigmoid resection that will need to be performed. At this time, the abdomen was allowed to desufflate and the infraumbilical and suprapubic incisions were connected using a fresh #10 blade and incision was taken down past the fascia entering the abdomen with electrocautery. All trocars were discarded and laparoscopically were removed and "been brought to the operative field." A Bookwalter retractor was placed and with appropriate retraction, the abdomen was inspected and the area of the sigmoid perforation with the large pericolonic abscess was identified with a thick surrounding tissue at the base of the distal small bowel mesentery. This was peeled off and portions of it were felt to be fairly thick, little bit abnormal, and were sent to pathology for frozen section to ensure that this was not a malignant process. Pathology intraoperative frozen section did not identify any malignancy and noted fibrinous fibrous inflammatory tissues. At this time, a proximal and distal ends and the small bowel was easily peeled off the inflammatory process and ran from the ligament of Treitz to the ileocecal valve. The small bowel was otherwise normal some areas required lysis of adhesions as well and some areas that had dense thickened inflammatory mesentery. The stomach was identified and noted to be otherwise normal. The omentum had some lymphadenopathy and a single large lymph node was excised using electrocautery and sent to pathology for review. In inspecting the remainder of the abdomen, the area of the small bowel that was adhesed to the large inflammatory mass and the mesentery of the small bowel was in the distal small bowel or around the area of the cecum and the appendix. The appendix was attached to this inflammatory mass and fairly inflamed at the distal end of the appendix. The base of the appendix looked otherwise normal. At this time, I did not feel that given the inflammatory process in the area and inflamed distal end of appendix. After the surgery that was going to be performed, the patient developed appendicitis, it would be a significant problem and reveal significant difficulty in doing appendectomy and one likely given the inflammatory process of the appendix to the small bowel. The small mesentery and the cecum, it would be in the patient's best interest to proceed with an appendectomy at this time. The appendix was circumferentially dissected out at the base and it was ligated using #0 Vicryl suture and divided using Thunderbeat energy device. The mesentery of the appendix was then divided close to the appendix using Thunderbeat energy device. The appendix sent to pathology for review as well. At this time, the small bowel was noted to be free and our attention was then turned to the sigmoid colon, which had the significant disease portion to it with area of perforation. There were small stool particles that were noted to be evacuating from the area of perforation those around the large abscess cavity. The proximal and distal area of bowel division was identified. Mesenteric incision was made and the bowel was divided proximally and distally at normal healthy distal colon using a linear 75 mm stapling device. Following this, the mesentery was divided using the Thunderbeat energy device. The specimen was then removed off the operative field and sent to pathology for review. At this time, the abdomen was irrigated with copious amounts of warm normal saline. In identifying the patient's uterus and pelvic organs, there was an abnormal mass abutting the uterus, which was easily amenable to excision for biopsy and was excised and sent to pathology for review. At this time, hemostasis was identified and noted throughout the abdomen and all particles were evacuated after significant irrigation and suction. No other abnormalities were noted and we began the anastomosis portion of the procedure. Given the viable healthy distal and proximal ends and the patient's overall good health, decision made to proceed with a primary anastomosis rather a colostomy. An end-to-end primary anastomosis was chosen. The bowel was brought together and noted to come together without any significant tension and the distal ends at the staple line did have good blood flow and were pink and viable. Good mesentery was noted as well in these areas. A layer of 3-0 silk Lembert sutures was placed on the posterior aspect. The staple lines were divided, were cut off using Metzenbaum scissors and the bowel lumens were identified and noted to be otherwise healthy. A 2-0 Vicryl suture was then used in a running fashion to perform the end-to-end primary anastomosis of the distal colon. Once this was complete, an anterior row of 3-0 silk Lembert sutures was placed. The bowel patency was checked and identified. There was no tension and there was good blood flow noted around the areas of the anastomosis. At this time, the abdomen was then irrigated again and suctioned. No abnormalities were noted and began the conclusion of our procedure. Again, given the patient's prior large inflammatory infectious process with significant purulent fluid, a decision made to leave a 19 mm Antonio drain in the pelvis, which was placed through the right lower quadrant at 5 mm trocar site. The drain was stitched to the skin using a 2-0 nylon suture. Following this, we began the conclusion of our procedure. The fascia was reapproximated using a #0 looped PDS suture followed by irrigation and cleaning of the midline wound and reapproximation using surgical lisa. Dressings were applied. The patient tolerated the procedure well and was taken to the postanesthetic care unit in stable condition. Malachi Dexter M.D. DR: OSWALDO JOB#: [id number] CC: NETO
[2017-07-18] VITALS: BP 122/73
--- NOTE | 2017-07-18 | General Progress Note ---
Assessment/Plan Assessment/Plan diverticulitis phlegmon htn abx gensurgery fup dw Dr Dexter and Dr Borjas fluids NPO for surgery today bp controlled dvt and ulcer prphylaxis Subjective Allergies: Coded Allergies: No Known Allergies (Unverified , 01/22/12) Subjective co abdominal pain no n/v pos bm ct scan noted dw surgery going ffor surgery today Objective Last 24 Hour Vital Signs Date Time Temp Pulse Resp B/P (MAP) Pulse Ox O2 Delivery O2 Flow Rate FiO2 07/17/17 20:00 18 07/17/17 20:00 97.5 92 20 112/68 100 Nasal Cannula 3.0 97.5 07/17/17 20:00 91 07/17/17 18:00 20 07/17/17 17:35 98.1 99 20 116/63 100 Nasal Cannula 3.0 98.1 07/17/17 17:15 20 07/17/17 17:00 22 07/17/17 16:58 99.4 07/17/17 16:57 99.4 94 20 131/62 100 Nasal Cannula 3.0 99.4 07/17/17 16:50 96 18 141/64 100 Nasal Cannula 3.0 07/17/17 16:45 20 07/17/17 16:40 90 20 144/71 100 Nasal Cannula 3.0 07/17/17 16:30 95 22 138/62 100 Nasal Cannula 3.0 07/17/17 16:30 97.3 07/17/17 16:30 18 07/17/17 16:20 94 23 164/70 100 Nasal Cannula 3.0 07/17/17 16:10 90 22 164/63 99 Nasal Cannula 3.0 07/17/17 16:05 89 19 174/77 99 Simple Mask 6.0 07/17/17 16:00 97.3 93 22 183/81 99 Simple Mask 6.0 97.3 07/17/17 09:51 208.4 90 18 99 07/17/17 08:00 98.6 87 21 136/77 97 Room Air 98.6 07/17/17 04:00 98.4 90 20 140/77 99 Room Air 98.4 07/17/17 04:00 85 07/17/17 00:00 98.6 91 20 148/77 98 Room Air 98.6 07/17/17 00:00 87 Intake and Output 07/16/17 07/17/17 19:00 07:00 Intake Total 900 ml 1257.0 ml Output Total 200 ml Balance 700 ml 1257.0 ml IV Total 900 ml 1257.0 ml Output Urine Total 200 ml # Voids 2 # Bowel Movements 3 1 Laboratory Tests 07/17/17 08:34: White Blood Count 7.1, Red Blood Count 4.37, Hemoglobin 14.4, Hematocrit 41.7, Mean Corpuscular Volume 95, Mean Corpuscular Hemoglobin 32.8H, Mean Corpuscular Hemoglobin Concent 34.4, Red Cell Distribution Width 11.1L, Platelet Count 367, Mean Platelet Volume 6.7, Neutrophils (%) (Auto) 70.3, Lymphocytes (%) (Auto) 12.4L, Monocytes (%) (Auto) 15.1H, Eosinophils (%) (Auto) 0.9, Basophils (%) ( Auto) 1.2, Prothrombin Time 10.5, Prothromb Time International Ratio 1.0, Activated Partial Thromboplast Time 36H, Sodium Level 136, Potassium Level 3.4L , Chloride Level 100, Carbon Dioxide Level 20L, Anion Gap 16H, Blood Urea Nitrogen 3L, Creatinine 0.6, Estimat Glomerular Filtration Rate > 60, Glucose Level 83, Calcium Level 9.5 Height (Feet): 5 Height (Inches): 6.00 Weight (Pounds): 120 Cardiovascular: normal rate Respiratory/Chest: lungs clear Objective abdomen pos tenderlness left lower qudrant no rebound or guarding CLARITZA FREED Jul 18, 2017 00:00
[2017-07-18 04:00] VITALS: BP 131/75
[2017-07-18] MEDS: D5 1/2NS w/KCl 20mEq 1,000 ML IV SCH ×2 (06:00→16:08)
[2017-07-18] MEDS: Zoysn 3.37gm in NS 100ML IVPB SCH ×3 (06:05→22:00)
[2017-07-18] MEDS: PCA shift volume MISC SCH ×2 (07:26→19:25)
[2017-07-18 08:00] VITALS: BP 130/73
[2017-07-18] MEDS: Pantoprazole Inj IVP SCH (08:34)
[2017-07-18] MEDS: Heparin 5000 units/ml inj SUBQ SCH ×2 (08:35→21:00)
--- NOTE | 2017-07-18 10:43 | Infectious Diseases Prog Note ---
"Assessment/Plan Assessment/Plan antibiotics : zosyn A 1. diverticulitis with perforation | abscess 2. s/p Laparoscopic converted to open sigmoid colectomy. 3. s/p Evacuation of intra-abdominal abscess. 4. s/p Appendectomy. 5. s/p Lysis of adhesions. 6. hypertension 7. leucocytosis resolved P 1. continue zosyn 2. will follow up cultures Subjective Constitutional: Denies: fever, chills Respiratory: Denies: shortness of breath, dry cough Gastrointestinal/Abdominal: Reports: nausea; Denies: vomiting, diarrhea Musculoskeletal: Reports: pain Allergies: Coded Allergies: No Known Allergies (Unverified , 01/22/12) Objective Vital Signs Last 24 Hour Vital Signs Date Time Temp Pulse Resp B/P (MAP) Pulse Ox O2 Delivery O2 Flow Rate FiO2 07/18/17 08:00 18 07/18/17 08:00 97.7 95 21 130/73 97 Nasal Cannula 3.0 97.7 07/18/17 04:00 18 07/18/17 04:00 90 07/18/17 04:00 97.9 93 20 131/75 99 Nasal Cannula 3.0 97.9 07/18/17 00:00 93 07/18/17 00:00 97.7 94 20 122/73 98 Nasal Cannula 3.0 97.7 07/18/17 00:00 18 07/17/17 20:00 18 07/17/17 20:00 97.5 92 20 112/68 100 Nasal Cannula 3.0 97.5 07/17/17 20:00 91 07/17/17 18:00 20 07/17/17 17:35 98.1 99 20 116/63 100 Nasal Cannula 3.0 98.1 07/17/17 17:15 20 07/17/17 17:00 22 07/17/17 16:58 99.4 07/17/17 16:57 99.4 94 20 131/62 100 Nasal Cannula 3.0 99.4 07/17/17 16:50 96 18 141/64 100 Nasal Cannula 3.0 07/17/17 16:45 20 07/17/17 16:40 90 20 144/71 100 Nasal Cannula 3.0 07/17/17 16:30 95 22 138/62 100 Nasal Cannula 3.0 07/17/17 16:30 97.3 07/17/17 16:30 18 07/17/17 16:20 94 23 164/70 100 Nasal Cannula 3.0 07/17/17 16:10 90 22 164/63 99 Nasal Cannula 3.0 07/17/17 16:05 89 19 174/77 99 Simple Mask 6.0 07/17/17 16:00 97.3 93 22 183/81 99 Simple Mask 6.0 97.3 Height (Feet): 5 Height (Inches): 6.00 Weight (Pounds): 120 Respiratory/Chest: lungs clear Cardiovascular: normal rate, regular rhythm, no gallop/murmur Abdomen: tender - in LLQ Extremities: no edema BRISSA WORLEY Jul 18, 2017 10:43"
[2017-07-18 12:00] VITALS: BP 140/81
[2017-07-18 16:00] VITALS: BP 136/71
--- NOTE | 2017-07-18 18:31 | General Progress Note ---
Assessment/Plan Assessment/Plan diverticulitis phlegmon htn abx gensurgery fup dw Dr Detxer and Dr Borjas fluids NPO post op bp controlled dvt and ulcer prphylaxis Subjective Allergies: Coded Allergies: No Known Allergies (Unverified , 01/22/12) Subjective post op Objective Last 24 Hour Vital Signs Date Time Temp Pulse Resp B/P (MAP) Pulse Ox O2 Delivery O2 Flow Rate FiO2 07/18/17 17:39 18 07/18/17 17:35 18 07/18/17 16:00 97.7 106 20 136/71 98 Room Air 97.7 07/18/17 16:00 18 07/18/17 12:00 18 07/18/17 12:00 98.1 101 20 140/81 98 Room Air 98.1 07/18/17 12:00 93 07/18/17 08:00 18 07/18/17 08:00 97.7 95 21 130/73 97 Nasal Cannula 3.0 97.7 07/18/17 08:00 101 07/18/17 04:00 18 07/18/17 04:00 90 07/18/17 04:00 97.9 93 20 131/75 99 Nasal Cannula 3.0 97.9 07/18/17 00:00 93 07/18/17 00:00 97.7 94 20 122/73 98 Nasal Cannula 3.0 97.7 07/18/17 00:00 18 07/17/17 20:00 18 07/17/17 20:00 97.5 92 20 112/68 100 Nasal Cannula 3.0 97.5 07/17/17 20:00 91 Intake and Output 07/17/17 07/18/17 19:00 07:00 Intake Total 2060.00 ml Output Total 400 ml 3025 ml Balance 1660.00 ml -3025 ml IV Total 2060.00 ml Output Urine Total 300 ml 3000 ml Drainage Total 25 ml Estimated Blood Loss 100 ml Height (Feet): 5 Height (Inches): 6.00 Weight (Pounds): 120 General Appearance: WD/WN Cardiovascular: normal rate Respiratory/Chest: lungs clear Objective abdomen wound clean CLARITZA FREED Jul 18, 2017 18:31
--- NOTE | 2017-07-18 19:12 | General Progress Note ---
Assessment/Plan Assessment/Plan Assessment - acute diverticulitis with phelgmon / operforation / abscess - s/p resection and anastomosis Recommnedations - NPO - IVF - ABX - encourage compliance with labs Subjective Allergies: Coded Allergies: No Known Allergies (Unverified , 01/22/12) Subjective POD #1 s/p partial colectomy and primary anastomosis patient refused lab draw today advised of the significance of lab evaluation in immediate post op period Objective Last 24 Hour Vital Signs Date Time Temp Pulse Resp B/P (MAP) Pulse Ox O2 Delivery O2 Flow Rate FiO2 07/18/17 17:39 18 07/18/17 17:35 18 07/18/17 16:00 94 07/18/17 16:00 97.7 106 20 136/71 98 Room Air 97.7 07/18/17 16:00 18 07/18/17 12:00 18 07/18/17 12:00 98.1 101 20 140/81 98 Room Air 98.1 07/18/17 12:00 93 07/18/17 08:00 18 07/18/17 08:00 97.7 95 21 130/73 97 Nasal Cannula 3.0 97.7 07/18/17 08:00 101 07/18/17 04:00 18 07/18/17 04:00 90 07/18/17 04:00 97.9 93 20 131/75 99 Nasal Cannula 3.0 97.9 07/18/17 00:00 93 07/18/17 00:00 97.7 94 20 122/73 98 Nasal Cannula 3.0 97.7 07/18/17 00:00 18 07/17/17 20:00 18 07/17/17 20:00 97.5 92 20 112/68 100 Nasal Cannula 3.0 97.5 07/17/17 20:00 91 Intake and Output 07/17/17 07/18/17 19:00 07:00 Intake Total 2060.00 ml Output Total 400 ml 3025 ml Balance 1660.00 ml -3025 ml IV Total 2060.00 ml Output Urine Total 300 ml 3000 ml Drainage Total 25 ml Estimated Blood Loss 100 ml Height (Feet): 5 Height (Inches): 6.00 Weight (Pounds): 120 Objective WDWN AA woman NCAT supple CTA RRR soft ND, (+) vertical midline scar, (+) LUNA --> scant reddish liquid no edema non focal RICCI KING Jul 18, 2017 19:12
[2017-07-18 20:00] VITALS: BP 132/57
--- NOTE | 2017-07-18 20:32 | General Progress Note ---
Progress Note Progress Note Surgery: post op day #1. doing well. pain. no n/v/f/c. wants water and ice chips. no flatus. afebrile, HD stable, doing well. exam with incisional tenderness. drain serosang. -npo -iv fluids -iv abx -keep sherman until ambulatory await return of bowel function Malachi Dexter Jul 18, 2017 20:32
[2017-07-18 20:54] LABS: HEMATOCRIT 35.4 % (37.0-47.0); HEMOGLOBIN 12.7 G/DL (12.0-16.0); MEAN CORPUSCULAR VOLUME 93 FL (80-99); PLATELET COUNT 368 K/UL (150-450); RED BLOOD COUNT 3.81 M/UL (4.20-5.40); RED CELL DISTRIBUTION WIDTH 11.2 % (11.6-14.8)
[2017-07-18 21:11] LABS: ANION GAP 6 mmol/L (5-15); BLOOD UREA NITROGEN 2 mg/dL (7-18); CALCIUM 9.2 MG/DL (8.5-10.1); CARBON DIOXIDE 27 MMOL/L (21-32); CHLORIDE 102 MMOL/L (98-107); CREATININE 0.5 MG/DL (0.55-1.30); PHOSPHORUS 1.5 MG/DL (2.5-4.9); POTASSIUM 3.4 MMOL/L (3.5-5.1); SODIUM 135 MMOL/L (136-145)
[2017-07-19] VITALS (7 sets, daily range): BP systolic 125–144; BP diastolic 57–75
[2017-07-19] MEDS: D5 1/2NS w/KCl 20mEq 1,000 ML IV SCH ×2 (00:24→11:09)
[2017-07-19] MEDS: Zoysn 3.37gm in NS 100ML IVPB SCH ×3 (06:00→21:33)
[2017-07-19] MEDS: PCA shift volume MISC SCH ×2 (07:04→19:00)
[2017-07-19] MEDS: Pantoprazole Inj IVP SCH (09:37)
[2017-07-19] MEDS: Heparin 5000 units/ml inj SUBQ SCH ×2 (09:38→21:28)
--- NOTE | 2017-07-19 11:03 | Infectious Diseases Prog Note ---
"Assessment/Plan Assessment/Plan antibiotics : zosyn A 1. diverticulitis with perforation | abscess with gram negative rods 2. s/p Laparoscopic converted to open sigmoid colectomy. 3. s/p Evacuation of intra-abdominal abscess. 4. s/p Appendectomy. 5. s/p Lysis of adhesions. 6. hypertension 7. leucocytosis increased P 1. continue zosyn 2. will follow up cultures Subjective Constitutional: Denies: fever, chills Respiratory: Reports: dry cough; Denies: shortness of breath Gastrointestinal/Abdominal: Reports: nausea; Denies: vomiting, diarrhea Musculoskeletal: Reports: pain - abdominal Allergies: Coded Allergies: No Known Allergies (Unverified , 01/22/12) Objective Vital Signs Last 24 Hour Vital Signs Date Time Temp Pulse Resp B/P (MAP) Pulse Ox O2 Delivery O2 Flow Rate FiO2 07/19/17 08:00 98.1 92 18 127/75 98 Room Air 98.1 07/19/17 05:47 97.6 84 18 126/57 98 Room Air 97.6 07/19/17 04:00 18 07/19/17 04:00 91 07/19/17 04:00 97.6 84 18 126/61 98 Room Air 97.6 07/19/17 00:00 95 07/19/17 00:00 98.2 93 18 131/57 96 Room Air 98.2 07/19/17 00:00 18 07/18/17 21:00 95 07/18/17 20:00 18 07/18/17 20:00 97.7 97 19 132/57 99 Room Air 97.7 07/18/17 17:39 18 07/18/17 17:35 18 07/18/17 16:00 94 07/18/17 16:00 97.7 106 20 136/71 98 Room Air 97.7 07/18/17 16:00 18 07/18/17 12:00 18 07/18/17 12:00 98.1 101 20 140/81 98 Room Air 98.1 07/18/17 12:00 93 Height (Feet): 5 Height (Inches): 6.00 Weight (Pounds): 120 Respiratory/Chest: lungs clear Cardiovascular: normal rate, regular rhythm, no gallop/murmur Abdomen: other - in dressings, LUNA drain Extremities: no edema Microbiology Date/Time Source Procedure Growth Status 07/17/17 15:27 Abdominal Cavity Gram Stain - Final Resulted 07/17/17 15:27 Aerobic Culture - Preliminary Gram Negative Jose Resulted 07/17/17 15:27 Abdominal Cavity Anaerobic Culture - Preliminary NO GROWTH Resulted Laboratory Tests Test 07/18/17 20:40 White Blood Count 19.0 K/UL (4.8-10.8) H Red Blood Count 3.81 M/UL (4.20-5.40) L Hemoglobin 12.7 G/DL (12.0-16.0) Hematocrit 35.4 % (37.0-47.0) L Mean Corpuscular Volume 93 FL (80-99) Mean Corpuscular Hemoglobin 33.3 PG (27.0-31.0) H Mean Corpuscular Hemoglobin Concent 35.8 G/DL (32.0-36.0) Red Cell Distribution Width 11.2 % (11.6-14.8) L Platelet Count 368 K/UL (150-450) Mean Platelet Volume 6.3 FL (6.5-10.1) L Neutrophils (%) (Auto) % (45.0-75.0) Lymphocytes (%) (Auto) % (20.0-45.0) Monocytes (%) (Auto) % (1.0-10.0) Eosinophils (%) (Auto) % (0.0-3.0) Basophils (%) (Auto) % (0.0-2.0) Differential Total Cells Counted 100 Neutrophils % (Manual) 77 % (45-75) H Lymphocytes % (Manual) 7 % (20-45) L Monocytes % (Manual) 12 % (1-10) H Eosinophils % (Manual) 0 % (0-3) Basophils % (Manual) 0 % (0-2) Band Neutrophils 4 % (0-8) Platelet Estimate Adequate Platelet Morphology Normal Red Blood Cell Morphology Normal Sodium Level 135 MMOL/L (136-145) L Potassium Level 3.4 MMOL/L (3.5-5.1) L Chloride Level 102 MMOL/L (98-107) Carbon Dioxide Level 27 MMOL/L (21-32) Anion Gap 6 mmol/L (5-15) Blood Urea Nitrogen 2 mg/dL (7-18) L Creatinine 0.5 MG/DL (0.55-1.30) L Estimat Glomerular Filtration Rate > 60 mL/min (>60) Glucose Level 125 MG/DL (74-106) H Calcium Level 9.2 MG/DL (8.5-10.1) Phosphorus Level 1.5 MG/DL (2.5-4.9) L Magnesium Level 1.5 MG/DL (1.8-2.4) L Current Medications Medications (Trade) Dose Ordered Sig/Hood Route PRN Reason Start Time Stop Time Status Last Admin Dose Admin Acetaminophen (Tylenol) 650 mg Q4H PRN ORAL T>100.5 07/17/17 17:00 08/16/17 16:59 Dextrose/ Electrolytes 1,000 ml @ 100 mls/hr Q10H IV 07/17/17 20:00 08/16/17 19:59 07/19/17 00:24 Diphenhydramine HCl (Benadryl) 25 mg Q6H PRN IVP Itching/Pruritis 07/17/17 17:00 08/16/17 16:59 Heparin Sodium (Porcine) (Heparin 5000 units/ml) 5,000 units EVERY 12 HOURS SUBQ 07/12/17 21:00 08/11/17 20:59 07/19/17 09:38 Ketorolac Tromethamine (Toradol 30mg) 30 mg Q6H PRN IV breakthrough pain 07/19/17 17:15 07/24/17 17:14 Magnesium Sulfate 100 ml @ 100 mls/hr Q1H IVPB 07/19/17 10:45 07/19/17 12:44 Miscellaneous Medication (CONSTRUCTION CRAFT LABORER Rate Change) 1 ea DAILY PRN MISC rate change 07/17/17 17:15 07/19/17 17:14 Miscellaneous Medication (CONSTRUCTION CRAFT LABORER shift volume) 1 ea Q12HR@0700,1900 MISC 07/17/17 19:00 07/19/17 18:59 07/19/17 07:04 Morphine Sulfate 30 ml @ 0 mls/hr Q24H PRN IV For Pain 07/17/17 17:15 07/19/17 17:14 07/18/17 17:34 Morphine Sulfate (Morphine Sulfate) 2 mg Q4H PRN IVP Moderate Pain (Pain Scale 4-6) 07/19/17 17:15 07/26/17 17:14 Morphine Sulfate (Morphine Sulfate) 4 mg Q3H PRN SUBQ Severe Pain (Pain Scale 7-10) 07/17/17 17:15 07/19/17 17:14 Morphine Sulfate (Morphine Sulfate) 4 mg Q4H PRN IVP Severe Pain (Pain Scale 7-10) 07/19/17 17:15 07/26/17 17:14 Ondansetron HCl (Zofran) 4 mg Q6H PRN IVP Nausea & Vomiting 07/17/17 17:00 08/16/17 16:59 07/18/17 05:37 Pantoprazole (Protonix) 40 mg DAILY IVP 07/18/17 09:00 08/17/17 08:59 07/19/17 09:37 Piperacillin Sod/ Tazobactam Sod 3.375 gm/Sodium Chloride 110 ml @ 27.5 mls/hr Q8H IVPB 07/12/17 22:00 07/23/17 21:59 07/19/17 06:00 Potassium Phosphate 20 mm/ Sodium Chloride 281.6667 ml @ 46.944 m... ONCE ONCE IV 07/19/17 12:00 07/19/17 17:59 BRISSA WORLEY Jul 19, 2017 11:03"
[2017-07-19 11:30] LABS: BASOPHILS % (AUTO) 1.1 % (0.0-2.0); EOSINOPHILS % (AUTO) 0.5 % (0.0-3.0); HEMOGLOBIN 13.2 G/DL (12.0-16.0); MEAN CORPUSCULAR VOLUME 95 FL (80-99); NEUTROPHILS % (AUTO) 80.4 % (45.0-75.0); PLATELET COUNT 351 K/UL (150-450); RED CELL DISTRIBUTION WIDTH 11.2 % (11.6-14.8)
[2017-07-19 11:58] LABS: ALANINE AMINOTRANSFERASE 23 U/L (12-78); ALBUMIN 2.6 G/DL (3.4-5.0); ALBUMIN/GLOBULIN RATIO 0.6 (1.0-2.7); ALKALINE PHOSPHATASE 99 U/L (46-116); ANION GAP 10 mmol/L (5-15); ASPARTATE AMINO TRANSFERASE 23 U/L (15-37); BILIRUBIN,TOTAL 0.4 MG/DL (0.2-1.0); BLOOD UREA NITROGEN 3 mg/dL (7-18); CALCIUM 9.7 MG/DL (8.5-10.1); CARBON DIOXIDE 27 MMOL/L (21-32); CHLORIDE 101 MMOL/L (98-107); CREATININE 0.5 MG/DL (0.55-1.30); POTASSIUM 3.5 MMOL/L (3.5-5.1); SODIUM 138 MMOL/L (136-145)
[2017-07-19] MEDS ORDERED: Potassium Phosphate 20 MM in NS 275 ML IV ONE (12:00)
--- NOTE | 2017-07-19 14:13 | General Progress Note ---
Assessment/Plan Problem List: (1) Acute diverticulitis ICD Codes: K57.92 - Diverticulitis of intestine, part unspecified, without perforation or abscess without bleeding SNOMED: 914793294 (2) HTN (hypertension) ICD Codes: I10 - Essential (primary) hypertension SNOMED: 46759593 (3) Phlegmon ICD Codes: L02.91 - Cutaneous abscess, unspecified SNOMED: 287677265, 992509121 Assessment/Plan POD#2 npo ivf pain control fu surg recs needs out patient colonoscopy in 2 months Subjective ROS Limited/Unobtainable: Yes Allergies: Coded Allergies: No Known Allergies (Unverified , 01/22/12) Subjective no event wants to eat Objective Last 24 Hour Vital Signs Date Time Temp Pulse Resp B/P (MAP) Pulse Ox O2 Delivery O2 Flow Rate FiO2 07/19/17 12:00 18 07/19/17 12:00 90 07/19/17 11:55 97.9 89 18 129/75 98 Room Air 97.9 07/19/17 08:00 88 07/19/17 08:00 18 07/19/17 08:00 98.1 92 18 127/75 98 Room Air 98.1 07/19/17 05:47 97.6 84 18 126/57 98 Room Air 97.6 07/19/17 04:00 18 07/19/17 04:00 91 07/19/17 04:00 97.6 84 18 126/61 98 Room Air 97.6 07/19/17 00:00 95 07/19/17 00:00 98.2 93 18 131/57 96 Room Air 98.2 07/19/17 00:00 18 07/18/17 21:00 95 07/18/17 20:00 18 07/18/17 20:00 97.7 97 19 132/57 99 Room Air 97.7 07/18/17 17:39 18 07/18/17 17:35 18 07/18/17 16:00 94 07/18/17 16:00 97.7 106 20 136/71 98 Room Air 97.7 07/18/17 16:00 18 Intake and Output 07/18/17 07/19/17 19:00 07:00 Intake Total 1333.0 ml Output Total 25 ml 700 ml Balance 1308.0 ml -700 ml IV Total 1333.0 ml Output Urine Total 700 ml Drainage Total 25 ml Laboratory Tests 07/18/17 20:40: White Blood Count 19.0H, Red Blood Count 3.81L, Hemoglobin 12.7, Hematocrit 35.4L, Mean Corpuscular Volume 93, Mean Corpuscular Hemoglobin 33.3H, Mean Corpuscular Hemoglobin Concent 35.8, Red Cell Distribution Width 11.2L, Platelet Count 368, Mean Platelet Volume 6.3L, Neutrophils (%) (Auto) , Lymphocytes (%) (Auto) , Monocytes (%) (Auto) , Eosinophils (%) (Auto) , Basophils (%) (Auto) , Differential Total Cells Counted 100, Neutrophils % ( Manual) 77H, Lymphocytes % (Manual) 7L, Monocytes % (Manual) 12H, Eosinophils % (Manual) 0, Basophils % (Manual) 0, Band Neutrophils 4, Platelet Estimate Adequate, Platelet Morphology Normal, Red Blood Cell Morphology Normal, Sodium Level 135L, Potassium Level 3.4L, Chloride Level 102, Carbon Dioxide Level 27, Anion Gap 6, Blood Urea Nitrogen 2L, Creatinine 0.5L, Estimat Glomerular Filtration Rate > 60, Glucose Level 125H, Calcium Level 9.2, Phosphorus Level 1.5L, Magnesium Level 1.5L 07/19/17 11:00: White Blood Count 15.0H, Red Blood Count 3.90L, Hemoglobin 13.2, Hematocrit 37.0 , Mean Corpuscular Volume 95, Mean Corpuscular Hemoglobin 33.9H, Mean Corpuscular Hemoglobin Concent 35.8, Red Cell Distribution Width 11.2L, Platelet Count 351, Mean Platelet Volume 6.8, Neutrophils (%) (Auto) 80.4H, Lymphocytes (%) (Auto) 10.0L, Monocytes (%) (Auto) 8.0, Eosinophils (%) (Auto) 0.5, Basophils (%) (Auto) 1.1, Sodium Level 138, Potassium Level 3.5, Chloride Level 101, Carbon Dioxide Level 27, Anion Gap 10, Blood Urea Nitrogen 3L, Creatinine 0.5L, Estimat Glomerular Filtration Rate > 60, Glucose Level 121H, Calcium Level 9.7, Total Bilirubin 0.4, Aspartate Amino Transf (AST/SGOT) 23, Alanine Aminotransferase (ALT/SGPT) 23, Alkaline Phosphatase 99, Total Protein 7.3, Albumin 2.6L, Globulin 4.7, Albumin/Globulin Ratio 0.6L Height (Feet): 5 Height (Inches): 6.00 Weight (Pounds): 120 General Appearance: alert EENT: normal ENT inspection Neck: supple Cardiovascular: normal rate Respiratory/Chest: decreased breath sounds Abdomen: other - post surgical Extremities: non-tender YELENA JORDAN Jul 19, 2017 14:13
[2017-07-19] MEDS ORDERED: Tubing IV Secondary IV ONE (14:53)
[2017-07-19] MEDS ORDERED: Morphine Sulfate 4mg/ml Inj IVP PRN ×2 (17:15)
[2017-07-19] MEDS ORDERED: Ketorolac 30mg Inj IV PRN (17:15)
[2017-07-19] MEDS: PCA Morphine 1mg/ml 30 ML IV PRN (18:44)
--- NOTE | 2017-07-19 23:45 | General Progress Note ---
Assessment/Plan Assessment/Plan diverticulitis phlegmon htn hypokalmeia mypo magnesemia hypophosphatemia abx gensurgery fup dw Dr Dexter and Dr Borjas fluids NPO post op replace potassium magnesium and phosphorosu ambulate bp controlled dvt and ulcer prphylaxis use incentive spirometer Subjective Allergies: Coded Allergies: No Known Allergies (Unverified , 01/22/12) Subjective post op pain no chest pain or sob Objective Last 24 Hour Vital Signs Date Time Temp Pulse Resp B/P (MAP) Pulse Ox O2 Delivery O2 Flow Rate FiO2 07/19/17 20:00 94 07/19/17 20:00 18 07/19/17 20:00 99.0 96 18 125/69 97 99.0 07/19/17 18:44 18 07/19/17 18:40 18 07/19/17 16:00 85 07/19/17 16:00 97.9 84 17 144/73 99 Room Air 97.9 07/19/17 16:00 18 07/19/17 12:00 18 07/19/17 12:00 90 07/19/17 11:55 97.9 89 18 129/75 98 Room Air 97.9 07/19/17 08:00 88 07/19/17 08:00 18 07/19/17 08:00 98.1 92 18 127/75 98 Room Air 98.1 07/19/17 05:47 97.6 84 18 126/57 98 Room Air 97.6 07/19/17 04:00 18 07/19/17 04:00 91 07/19/17 04:00 97.6 84 18 126/61 98 Room Air 97.6 07/19/17 00:00 95 07/19/17 00:00 98.2 93 18 131/57 96 Room Air 98.2 07/19/17 00:00 18 Intake and Output 07/18/17 07/19/17 19:00 07:00 Intake Total 1333.0 ml Output Total 25 ml 700 ml Balance 1308.0 ml -700 ml IV Total 1333.0 ml Output Urine Total 700 ml Drainage Total 25 ml Laboratory Tests 07/19/17 11:00: White Blood Count 15.0H, Red Blood Count 3.90L, Hemoglobin 13.2, Hematocrit 37.0 , Mean Corpuscular Volume 95, Mean Corpuscular Hemoglobin 33.9H, Mean Corpuscular Hemoglobin Concent 35.8, Red Cell Distribution Width 11.2L, Platelet Count 351, Mean Platelet Volume 6.8, Neutrophils (%) (Auto) 80.4H, Lymphocytes (%) (Auto) 10.0L, Monocytes (%) (Auto) 8.0, Eosinophils (%) (Auto) 0.5, Basophils (%) (Auto) 1.1, Sodium Level 138, Potassium Level 3.5, Chloride Level 101, Carbon Dioxide Level 27, Anion Gap 10, Blood Urea Nitrogen 3L, Creatinine 0.5L, Estimat Glomerular Filtration Rate > 60, Glucose Level 121H, Calcium Level 9.7, Total Bilirubin 0.4, Aspartate Amino Transf (AST/SGOT) 23, Alanine Aminotransferase (ALT/SGPT) 23, Alkaline Phosphatase 99, Total Protein 7.3, Albumin 2.6L, Globulin 4.7, Albumin/Globulin Ratio 0.6L Height (Feet): 5 Height (Inches): 6.00 Weight (Pounds): 120 General Appearance: WD/WN Cardiovascular: normal rate Objective abdomen wound clean CLARITZA FREED Jul 19, 2017 23:45
[2017-07-20] VITALS: BP 117/59
[2017-07-20] MEDS: D5 1/2NS w/KCl 20mEq 1,000 ML IV SCH ×3 (00:42→18:53)
[2017-07-20 04:00] VITALS: BP 132/74
[2017-07-20] MEDS: Zoysn 3.37gm in NS 100ML IVPB SCH ×3 (06:19→21:17)
[2017-07-20] MEDS: PCA shift volume MISC SCH ×2 (07:00→19:33)
[2017-07-20 08:00] VITALS: BP 122/69
--- NOTE | 2017-07-20 08:14 | General Progress Note ---
Assessment/Plan Problem List: (1) Acute diverticulitis ICD Codes: K57.92 - Diverticulitis of intestine, part unspecified, without perforation or abscess without bleeding SNOMED: 855946274 (2) HTN (hypertension) ICD Codes: I10 - Essential (primary) hypertension SNOMED: 66746372 (3) Phlegmon ICD Codes: L02.91 - Cutaneous abscess, unspecified SNOMED: 264064522, [id number] Assessment/Plan POD#3 npo ivf pain control fu surg recs needs out patient colonoscopy in 2 months Subjective ROS Limited/Unobtainable: Yes Allergies: Coded Allergies: No Known Allergies (Unverified , 01/22/12) Subjective no event t Objective Last 24 Hour Vital Signs Date Time Temp Pulse Resp B/P (MAP) Pulse Ox O2 Delivery O2 Flow Rate FiO2 07/20/17 07:58 20 07/20/17 04:00 86 07/20/17 04:00 98.6 89 16 132/74 98 98.6 07/20/17 04:00 20 07/20/17 00:00 89 07/20/17 00:00 18 07/20/17 00:00 97.7 89 16 117/59 95 97.7 07/19/17 20:00 94 07/19/17 20:00 18 07/19/17 20:00 99.0 96 18 125/69 97 99.0 07/19/17 18:44 18 07/19/17 18:40 18 07/19/17 16:00 85 07/19/17 16:00 97.9 84 17 144/73 99 Room Air 97.9 07/19/17 16:00 18 07/19/17 12:00 18 07/19/17 12:00 90 07/19/17 11:55 97.9 89 18 129/75 98 Room Air 97.9 Intake and Output 07/19/17 07/20/17 19:00 07:00 Intake Total 794.720 ml 1350.0 ml Output Total 350 ml 20 ml Balance 444.720 ml 1330.0 ml Intake Oral 240 ml IV Total 794.720 ml 1110.0 ml Output Urine Total 300 ml Drainage Total 50 ml Other 20 ml # Voids 2 Laboratory Tests 07/19/17 11:00: White Blood Count 15.0H, Red Blood Count 3.90L, Hemoglobin 13.2, Hematocrit 37.0 , Mean Corpuscular Volume 95, Mean Corpuscular Hemoglobin 33.9H, Mean Corpuscular Hemoglobin Concent 35.8, Red Cell Distribution Width 11.2L, Platelet Count 351, Mean Platelet Volume 6.8, Neutrophils (%) (Auto) 80.4H, Lymphocytes (%) (Auto) 10.0L, Monocytes (%) (Auto) 8.0, Eosinophils (%) (Auto) 0.5, Basophils (%) (Auto) 1.1, Sodium Level 138, Potassium Level 3.5, Chloride Level 101, Carbon Dioxide Level 27, Anion Gap 10, Blood Urea Nitrogen 3L, Creatinine 0.5L, Estimat Glomerular Filtration Rate > 60, Glucose Level 121H, Calcium Level 9.7, Total Bilirubin 0.4, Aspartate Amino Transf (AST/SGOT) 23, Alanine Aminotransferase (ALT/SGPT) 23, Alkaline Phosphatase 99, Total Protein 7.3, Albumin 2.6L, Globulin 4.7, Albumin/Globulin Ratio 0.6L Height (Feet): 5 Height (Inches): 6.00 Weight (Pounds): 120 General Appearance: no apparent distress EENT: normal ENT inspection Neck: supple Cardiovascular: normal rate Respiratory/Chest: decreased breath sounds Abdomen: soft, other - post surgical Extremities: non-tender YELENA JORDAN Jul 20, 2017 08:14
[2017-07-20] MEDS: Pantoprazole Inj IVP SCH (08:29)
[2017-07-20] MEDS: Heparin 5000 units/ml inj SUBQ SCH ×2 (08:30→21:22)
--- NOTE | 2017-07-20 11:13 | Infectious Diseases Prog Note ---
"Assessment/Plan Assessment/Plan A 1. diverticulitis with perforation | abscess with E.coli 2. s/p Laparoscopic converted to open sigmoid colectomy. 3. s/p Evacuation of intra-abdominal abscess. 4. s/p Appendectomy. 5. s/p Lysis of adhesions. 6. hypertension 7. leucocytosis decreased 8. Uterine mass P 1. continue Zosyn 2. will follow up cultures & biopsy reports Subjective ROS Limited/Unobtainable: No HEENT: Reports: no symptoms Respiratory: Reports: no symptoms Cardiovascular: Reports: no symptoms Gastrointestinal/Abdominal: Reports: other - pain controlled Genitourinary: Reports: no symptoms Allergies: Coded Allergies: No Known Allergies (Unverified , 01/22/12) Objective Vital Signs Last 24 Hour Vital Signs Date Time Temp Pulse Resp B/P (MAP) Pulse Ox O2 Delivery O2 Flow Rate FiO2 07/20/17 08:00 97.3 93 18 122/69 93 97.3 07/20/17 07:58 20 07/20/17 04:00 86 07/20/17 04:00 98.6 89 16 132/74 98 98.6 07/20/17 04:00 20 07/20/17 00:00 89 07/20/17 00:00 18 07/20/17 00:00 97.7 89 16 117/59 95 97.7 07/19/17 20:00 94 07/19/17 20:00 18 07/19/17 20:00 99.0 96 18 125/69 97 99.0 07/19/17 18:44 18 07/19/17 18:40 18 07/19/17 16:00 85 07/19/17 16:00 97.9 84 17 144/73 99 Room Air 97.9 07/19/17 16:00 18 07/19/17 12:00 18 07/19/17 12:00 90 07/19/17 11:55 97.9 89 18 129/75 98 Room Air 97.9 Height (Feet): 5 Height (Inches): 6.00 Weight (Pounds): 120 General Appearance: no acute distress HEENT: mucous membranes moist Respiratory/Chest: lungs clear Cardiovascular: normal rate Abdomen: other - surgical dressing, drain Extremities: no edema Neurologic/Psychiatric: alert, oriented x 3, responsive Microbiology Date/Time Source Procedure Growth Status 07/17/17 15:27 Abdominal Cavity Gram Stain - Final Resulted 07/17/17 15:27 Aerobic Culture - Final Escherichia Coli Resulted 07/17/17 15:27 Abdominal Cavity Anaerobic Culture - Preliminary NO GROWTH Resulted Current Medications Medications (Trade) Dose Ordered Sig/Hood Route PRN Reason Start Time Stop Time Status Last Admin Dose Admin Acetaminophen (Tylenol) 650 mg Q4H PRN ORAL T>100.5 07/17/17 17:00 08/16/17 16:59 Dextrose/ Electrolytes 1,000 ml @ 100 mls/hr Q10H IV 07/17/17 20:00 08/16/17 19:59 07/20/17 08:13 Diphenhydramine HCl (Benadryl) 25 mg Q6H PRN IVP Itching/Pruritis 07/17/17 17:00 08/16/17 16:59 Heparin Sodium (Porcine) (Heparin 5000 units/ml) 5,000 units EVERY 12 HOURS SUBQ 07/12/17 21:00 08/11/17 20:59 07/20/17 08:30 Ketorolac Tromethamine (Toradol 30mg) 30 mg Q6H PRN IV breakthrough pain 07/19/17 17:15 07/24/17 17:14 Miscellaneous Medication (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 shift volume) 1 ea Q12HR@0700,1900 MISC 07/19/17 19:00 07/21/17 18:59 07/20/17 07:00 Morphine Sulfate 30 ml @ 0 mls/hr 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 OPERATOR Protocol PRN IV For Pain 07/19/17 18:45 07/21/17 18:44 07/19/17 18:44 Morphine Sulfate (Morphine Sulfate) 2 mg Q4H PRN IVP Moderate Pain (Pain Scale 4-6) 07/19/17 17:15 07/26/17 17:14 Morphine Sulfate (Morphine Sulfate) 4 mg Q4H PRN IVP Severe Pain (Pain Scale 7-10) 07/19/17 17:15 07/26/17 17:14 Ondansetron HCl (Zofran) 4 mg Q6H PRN IVP Nausea & Vomiting 07/17/17 17:00 08/16/17 16:59 07/18/17 05:37 Pantoprazole (Protonix) 40 mg DAILY IVP 07/18/17 09:00 08/17/17 08:59 07/20/17 08:29 Piperacillin Sod/ Tazobactam Sod 3.375 gm/Sodium Chloride 110 ml @ 27.5 mls/hr Q8H IVPB 07/12/17 22:00 07/23/17 21:59 07/20/17 06:19 KAE BUTTERFIELD Jul 20, 2017 11:13"
[2017-07-20 12:00] VITALS: BP 122/69
[2017-07-20 12:00] LABS: BASOPHILS % (AUTO) 0.8 % (0.0-2.0); HEMATOCRIT 33.6 % (37.0-47.0); HEMOGLOBIN 12.1 G/DL (12.0-16.0); LYMPHOCYTES % (AUTO) 19.5 % (20.0-45.0); MEAN CORPUSCULAR VOLUME 94 FL (80-99); MONOCYTES % (AUTO) 8.5 % (1.0-10.0); NEUTROPHILS % (AUTO) 70.1 % (45.0-75.0); PLATELET COUNT 400 K/UL (150-450); RED BLOOD COUNT 3.58 M/UL (4.20-5.40); RED CELL DISTRIBUTION WIDTH 11.5 % (11.6-14.8); WHITE BLOOD COUNT 9.5 K/UL (4.8-10.8)
[2017-07-20 12:06] LABS: ANION GAP 6 mmol/L (5-15); BLOOD UREA NITROGEN 4 mg/dL (7-18); CALCIUM 9.1 MG/DL (8.5-10.1); CARBON DIOXIDE 31 MMOL/L (21-32); CHLORIDE 103 MMOL/L (98-107); CREATININE 0.4 MG/DL (0.55-1.30); PHOSPHORUS 2.7 MG/DL (2.5-4.9); POTASSIUM 3.2 MMOL/L (3.5-5.1); SODIUM 140 MMOL/L (136-145)
--- NOTE | 2017-07-20 12:52 | General Progress Note ---
Progress Note Progress Note Surgery: doing well. no acute events. pain improved. no n/v/f/c. hungry. no flatus or BM yet. afebrile, HD stable, labs improved yesterday exam benign. wound c/d/i. simona drain minimal serous output d/c simona ambulate and oob ice chips awaiting return of bowel function npo/ivf/iv abx Malachi Dexter Jul 20, 2017 12:52
[2017-07-20 16:00] VITALS: BP 132/70
[2017-07-20] MEDS: PCA Morphine 1mg/ml 30 ML IV PRN (17:28)
[2017-07-20 20:00] VITALS: BP 147/73
--- NOTE | 2017-07-20 22:16 | General Progress Note ---
Assessment/Plan Assessment/Plan diverticulitis phlegmon htn hypokalmeia hypo magnesemia hypophosphatemia abx gensurgery fup dw Dr Dexter and Dr Borjas fluids diet per surgery post op replace potassium ambulate bp controlled dvt and ulcer prphylaxis use incentive spirometer Subjective Allergies: Coded Allergies: No Known Allergies (Unverified , 01/22/12) Subjective post op pain no chest pain or sob, sleeping currently Objective Last 24 Hour Vital Signs Date Time Temp Pulse Resp B/P (MAP) Pulse Ox O2 Delivery O2 Flow Rate FiO2 07/20/17 20:00 98.1 91 17 147/73 100 98.1 07/20/17 18:00 97.3 07/20/17 17:35 18 07/20/17 16:00 97.3 83 17 132/70 100 97.3 07/20/17 16:00 20 07/20/17 16:00 91 07/20/17 12:00 20 07/20/17 12:00 97.3 83 17 122/69 99 97.3 07/20/17 12:00 88 07/20/17 08:00 87 07/20/17 08:00 97.3 93 18 122/69 93 97.3 07/20/17 07:58 20 07/20/17 04:00 86 07/20/17 04:00 98.6 89 16 132/74 98 98.6 07/20/17 04:00 20 07/20/17 00:00 89 07/20/17 00:00 18 07/20/17 00:00 97.7 89 16 117/59 95 97.7 Intake and Output 07/19/17 07/20/17 19:00 07:00 Intake Total 794.720 ml 1350.0 ml Output Total 350 ml 20 ml Balance 444.720 ml 1330.0 ml Intake Oral 240 ml IV Total 794.720 ml 1110.0 ml Output Urine Total 300 ml Drainage Total 50 ml Other 20 ml # Voids 2 Laboratory Tests 07/20/17 11:35: White Blood Count 9.5, Red Blood Count 3.58L, Hemoglobin 12.1, Hematocrit 33.6L , Mean Corpuscular Volume 94, Mean Corpuscular Hemoglobin 33.9H, Mean Corpuscular Hemoglobin Concent 36.2H, Red Cell Distribution Width 11.5L, Platelet Count 400, Mean Platelet Volume 6.5, Neutrophils (%) (Auto) 70.1, Lymphocytes (%) (Auto) 19.5L, Monocytes (%) (Auto) 8.5, Eosinophils (%) (Auto) 1.0, Basophils (%) (Auto) 0.8, Sodium Level 140, Potassium Level 3.2L, Chloride Level 103, Carbon Dioxide Level 31, Anion Gap 6, Blood Urea Nitrogen 4L, Creatinine 0.4L, Estimat Glomerular Filtration Rate > 60, Glucose Level 112H, Calcium Level 9.1, Phosphorus Level 2.7, Magnesium Level 1.9 Height (Feet): 5 Height (Inches): 6.00 Weight (Pounds): 120 General Appearance: WD/WN Neck: supple Cardiovascular: normal rate Respiratory/Chest: lungs clear Objective abdomen wound clean pos tenderness no rebound guarding CLARITZA FREED Jul 20, 2017 22:16
[2017-07-20] MEDS ORDERED: Potassium Chloride 10 MEQ in NS 110 ML IVPB SCH (22:30)
[2017-07-21] VITALS: BP 125/61
[2017-07-21 04:00] VITALS: BP 135/75
[2017-07-21] MEDS: D5 1/2NS w/KCl 20mEq 1,000 ML IV SCH ×4 (04:00→21:45)
[2017-07-21] MEDS: Zoysn 3.37gm in NS 100ML IVPB SCH (06:08)
[2017-07-21] MEDS ORDERED: Potassium Chloride 10 MEQ in NS 110 ML IVPB SCH (07:00)
[2017-07-21] MEDS: PCA shift volume MISC SCH (07:12)
[2017-07-21 08:00] VITALS: BP 142/67
[2017-07-21] MEDS ORDERED: Potassium Chloride 40 MEQ/NS 550ML IVPB ONE ×2 (08:00)
[2017-07-21] MEDS: Pantoprazole Inj IVP SCH (08:44)
[2017-07-21 09:03] LABS: BASOPHILS % (AUTO) 0.8 % (0.0-2.0); EOSINOPHILS % (AUTO) 0.6 % (0.0-3.0); HEMATOCRIT 31.9 % (37.0-47.0); HEMOGLOBIN 11.2 G/DL (12.0-16.0); LYMPHOCYTES % (AUTO) 22.8 % (20.0-45.0); MEAN CORPUSCULAR VOLUME 95 FL (80-99); MONOCYTES % (AUTO) 7.9 % (1.0-10.0); NEUTROPHILS % (AUTO) 67.9 % (45.0-75.0); PLATELET COUNT 439 K/UL (150-450); RED BLOOD COUNT 3.36 M/UL (4.20-5.40); RED CELL DISTRIBUTION WIDTH 11.4 % (11.6-14.8); WHITE BLOOD COUNT 8.5 K/UL (4.8-10.8)
[2017-07-21 09:13] LABS: ALANINE AMINOTRANSFERASE 15 U/L (12-78); ALBUMIN 2.3 G/DL (3.4-5.0); ALBUMIN/GLOBULIN RATIO 0.6 (1.0-2.7); ALKALINE PHOSPHATASE 70 U/L (46-116); ANION GAP 5 mmol/L (5-15); ASPARTATE AMINO TRANSFERASE 12 U/L (15-37); BILIRUBIN,TOTAL 0.3 MG/DL (0.2-1.0); BLOOD UREA NITROGEN 6 mg/dL (7-18); CALCIUM 9.1 MG/DL (8.5-10.1); CARBON DIOXIDE 32 MMOL/L (21-32); CHLORIDE 103 MMOL/L (98-107); CREATININE 0.4 MG/DL (0.55-1.30); SODIUM 140 MMOL/L (136-145)
--- NOTE | 2017-07-21 09:31 | Diagnostic Imaging Report ---
Indication: Abdominal pain, status post recent surgery Technique: Supine view of the abdomen Comparison: Linen Room Supervisor image from CT scan dated 07/15/2017 Findings: There are lower midline skin lisa. Numerous mildly dilated gas-filled small bowel loops are seen in the left mid abdomen and left upper quadrant, less prominent small bowel loops in the pelvis. Gas is seen in the colon which is nondilated Impression: Mildly dilated gas-filled small bowel loops, as described. Given history of recent surgery, most likely this represents postoperative ileus. Early/partial small bowel obstruction not completely excludable, however. Follow-up imaging recommended as clinically indicated
[2017-07-21] MEDS: Heparin 5000 units/ml inj SUBQ SCH ×2 (09:57→21:46)
[2017-07-21] MEDS ORDERED: Rate Change PCA 1 Each MISC PRN ×3 (10:30→12:30)
[2017-07-21 12:00] VITALS: BP 139/80
[2017-07-21] MEDS ORDERED: Ketorolac 30mg Inj IV PRN (12:00)
[2017-07-21] MEDS ORDERED: PCA Morphine 1mg/ml 30 ML IV PRN (12:00)
[2017-07-21] MEDS ORDERED: PCA shift volume MISC SCH ×3 (12:00→19:00)
[2017-07-21] MEDS ORDERED: Naloxone 0.4mg/ml Inj IV PRN (12:00)
[2017-07-21] MEDS ORDERED: DiphenhydrAMINE 50mg/ml Inj IVP PRN (12:00)
[2017-07-21] MEDS ORDERED: Morphine Sulfate 4mg/ml Inj IVP PRN ×2 (12:15→12:30)
[2017-07-21] MEDS ORDERED: Morphine Sulfate 4mg/ml Inj SUBQ PRN (12:30)
[2017-07-21] MEDS: Piperacillin/Tazobactam 3.375 GM in NS 110 ML IVPB SCH ×2 (13:50→21:44)
--- NOTE | 2017-07-21 16:05 | General Progress Note ---
Progress Note Progress Note Surgery: doing well. had some small emesis last night and states that antibiotics left sour taste in her mouth but since resolved. no f/c. ambulatory. drain out afebrile, HD Stable, labs reviewed exam improved. abdomen soft, nt/nt, bs+, incision c/d/i. had flatus -start clears -cont abx -ambulate and oob -will monitor exam -am labs Malachi Dexter Jul 21, 2017 16:05
[2017-07-21 16:41] VITALS: BP 141/83
[2017-07-21 20:00] VITALS: BP 152/83
--- NOTE | 2017-07-21 21:51 | General Progress Note ---
Assessment/Plan Assessment/Plan diverticulitis phlegmon htn hypokalmeia hypo magnesemia hypophosphatemia abx gensurgery fup dw Dr Dexter and Dr Borjas fluids diet per surgery post op ambulate bp controlled dvt and ulcer prphylaxis use incentive spirometer Subjective Allergies: Coded Allergies: No Known Allergies (Unverified , 01/22/12) Subjective decreased post op pain no chest pain or sob, pos gas and small bm no n/v started on clears Objective Last 24 Hour Vital Signs Date Time Temp Pulse Resp B/P (MAP) Pulse Ox O2 Delivery O2 Flow Rate FiO2 07/21/17 20:00 99.4 91 18 152/83 100 Room Air 99.4 07/21/17 16:43 18 07/21/17 16:41 99.5 92 20 141/83 100 Room Air 99.5 07/21/17 12:00 99.3 92 20 139/80 96 Room Air 99.3 07/21/17 12:00 18 07/21/17 08:00 18 07/21/17 08:00 97.2 80 18 142/67 96 Room Air 97.2 07/21/17 07:56 87 07/21/17 04:00 18 07/21/17 04:00 97.5 75 18 135/75 98 97.5 07/21/17 04:00 85 07/21/17 00:00 18 07/21/17 00:00 86 07/21/17 00:00 97.0 85 17 125/61 97 97.0 Intake and Output 07/20/17 07/21/17 19:00 07:00 Intake Total 1055.0 ml Balance 1055.0 ml IV Total 1055.0 ml # Voids 4 # Bowel Movements 1 Laboratory Tests 07/21/17 07:39: White Blood Count 8.5, Red Blood Count 3.36L, Hemoglobin 11.2L, Hematocrit 31.9L , Mean Corpuscular Volume 95, Mean Corpuscular Hemoglobin 33.3H, Mean Corpuscular Hemoglobin Concent 35.1, Red Cell Distribution Width 11.4L, Platelet Count 439, Mean Platelet Volume 6.5, Neutrophils (%) (Auto) 67.9, Lymphocytes (%) (Auto) 22.8, Monocytes (%) (Auto) 7.9, Eosinophils (%) (Auto) 0.6, Basophils (%) (Auto) 0.8, Sodium Level 140, Potassium Level 3.0L, Chloride Level 103, Carbon Dioxide Level 32, Anion Gap 5, Blood Urea Nitrogen 6L, Creatinine 0.4L, Estimat Glomerular Filtration Rate > 60, Glucose Level 100, Calcium Level 9.1, Total Bilirubin 0.3, Aspartate Amino Transf (AST/SGOT) 12L, Alanine Aminotransferase (ALT/SGPT) 15, Alkaline Phosphatase 70, Total Protein 6.2L, Albumin 2.3L, Globulin 3.9, Albumin/Globulin Ratio 0.6L Height (Feet): 5 Height (Inches): 6.00 Weight (Pounds): 120 General Appearance: WD/WN, no apparent distress Neck: supple Cardiovascular: normal rate Respiratory/Chest: lungs clear Objective abdomen wound clean pos tenderness no rebound guarding CLARITZA FREED Jul 21, 2017 21:51
--- NOTE | 2017-07-21 23:03 | General Progress Note ---
Assessment/Plan Assessment/Plan Assessment - acute diverticulitis with phelgmon / operforation / abscess - s/p resection and anastomosis Recommnedations - NPO - IVF - ABX - encourage compliance with labs Subjective Allergies: Coded Allergies: No Known Allergies (Unverified , 01/22/12) Subjective s/p partial colectomy and primary anastomosis Feels ok no vomiting Objective Last 24 Hour Vital Signs Date Time Temp Pulse Resp B/P (MAP) Pulse Ox O2 Delivery O2 Flow Rate FiO2 07/21/17 20:00 99.4 91 18 152/83 100 Room Air 99.4 07/21/17 16:43 18 07/21/17 16:41 99.5 92 20 141/83 100 Room Air 99.5 07/21/17 12:00 99.3 92 20 139/80 96 Room Air 99.3 07/21/17 12:00 18 07/21/17 08:00 18 07/21/17 08:00 97.2 80 18 142/67 96 Room Air 97.2 07/21/17 07:56 87 07/21/17 04:00 18 07/21/17 04:00 97.5 75 18 135/75 98 97.5 07/21/17 04:00 85 07/21/17 00:00 18 07/21/17 00:00 86 07/21/17 00:00 97.0 85 17 125/61 97 97.0 Intake and Output 07/20/17 07/21/17 19:00 07:00 Intake Total 1055.0 ml Balance 1055.0 ml IV Total 1055.0 ml # Voids 4 # Bowel Movements 1 Laboratory Tests 07/21/17 07:39: White Blood Count 8.5, Red Blood Count 3.36L, Hemoglobin 11.2L, Hematocrit 31.9L , Mean Corpuscular Volume 95, Mean Corpuscular Hemoglobin 33.3H, Mean Corpuscular Hemoglobin Concent 35.1, Red Cell Distribution Width 11.4L, Platelet Count 439, Mean Platelet Volume 6.5, Neutrophils (%) (Auto) 67.9, Lymphocytes (%) (Auto) 22.8, Monocytes (%) (Auto) 7.9, Eosinophils (%) (Auto) 0.6, Basophils (%) (Auto) 0.8, Sodium Level 140, Potassium Level 3.0L, Chloride Level 103, Carbon Dioxide Level 32, Anion Gap 5, Blood Urea Nitrogen 6L, Creatinine 0.4L, Estimat Glomerular Filtration Rate > 60, Glucose Level 100, Calcium Level 9.1, Total Bilirubin 0.3, Aspartate Amino Transf (AST/SGOT) 12L, Alanine Aminotransferase (ALT/SGPT) 15, Alkaline Phosphatase 70, Total Protein 6.2L, Albumin 2.3L, Globulin 3.9, Albumin/Globulin Ratio 0.6L Height (Feet): 5 Height (Inches): 6.00 Weight (Pounds): 120 Objective WDWN AA woman NCAT supple CTA RRR soft ND, (+) vertical midline scar no edema non focal RICCI KING Jul 21, 2017 23:03
[2017-07-22] VITALS: BP 151/80
[2017-07-22 05:26] VITALS: BP 140/79
[2017-07-22] MEDS: Piperacillin/Tazobactam 3.375 GM in NS 110 ML IVPB SCH (05:49)
[2017-07-22 06:21] LABS: BASOPHILS % (AUTO) 0.9 % (0.0-2.0); EOSINOPHILS % (AUTO) 1.4 % (0.0-3.0); HEMATOCRIT 30.8 % (37.0-47.0); HEMOGLOBIN 11.1 G/DL (12.0-16.0); LYMPHOCYTES % (AUTO) 25.3 % (20.0-45.0); MEAN CORPUSCULAR VOLUME 95 FL (80-99); MONOCYTES % (AUTO) 11.2 % (1.0-10.0); NEUTROPHILS % (AUTO) 61.2 % (45.0-75.0); PLATELET COUNT 451 K/UL (150-450); RED BLOOD COUNT 3.24 M/UL (4.20-5.40); RED CELL DISTRIBUTION WIDTH 11.2 % (11.6-14.8); WHITE BLOOD COUNT 7.8 K/UL (4.8-10.8)
[2017-07-22] MEDS: D5 1/2NS w/KCl 20mEq 1,000 ML IV SCH ×2 (06:23→15:42)
[2017-07-22 06:46] LABS: ANION GAP 6 mmol/L (5-15); BLOOD UREA NITROGEN 4 mg/dL (7-18); CALCIUM 9.3 MG/DL (8.5-10.1); CARBON DIOXIDE 28 MMOL/L (21-32); CHLORIDE 101 MMOL/L (98-107); CREATININE 0.5 MG/DL (0.55-1.30); POTASSIUM 3.8 MMOL/L (3.5-5.1); SODIUM 135 MMOL/L (136-145)
[2017-07-22 07:51] VITALS: BP 155/77
[2017-07-22] MEDS ORDERED: Potassium Chloride 40 MEQ in Sodium Chloride 500ML 550 ML IVPB ONE (08:00)
[2017-07-22] MEDS: Pantoprazole Inj IVP SCH (09:18)
[2017-07-22] MEDS: Heparin 5000 units/ml inj SUBQ SCH ×2 (09:19→20:32)
--- NOTE | 2017-07-22 10:50 | Infectious Diseases Prog Note ---
"Assessment/Plan Assessment/Plan antibiotics : zosyn A 1. diverticulitis with perforation | abscess with e.coli 2. s/p Laparoscopic converted to open sigmoid colectomy. 3. s/p Evacuation of intra-abdominal abscess. 4. s/p Appendectomy. 5. s/p Lysis of adhesions. 6. hypertension 7. leucocytosis resolved P 1. d/c zosyn 2. start levoquin, flagyl 3. will follow up cultures Subjective Constitutional: Denies: fever, chills Respiratory: Denies: shortness of breath, dry cough Gastrointestinal/Abdominal: Denies: nausea, vomiting, diarrhea Musculoskeletal: Reports: pain - decreased Allergies: Coded Allergies: No Known Allergies (Unverified , 01/22/12) Objective Vital Signs Last 24 Hour Vital Signs Date Time Temp Pulse Resp B/P (MAP) Pulse Ox O2 Delivery O2 Flow Rate FiO2 07/22/17 07:51 98.9 82 18 155/77 98 Room Air 98.9 07/22/17 05:26 99.1 84 18 140/79 96 Room Air 99.1 07/22/17 00:00 99.1 88 18 151/80 95 Room Air 99.1 07/21/17 20:00 99.4 91 18 152/83 100 Room Air 99.4 07/21/17 16:43 18 07/21/17 16:41 99.5 92 20 141/83 100 Room Air 99.5 07/21/17 12:00 99.3 92 20 139/80 96 Room Air 99.3 07/21/17 12:00 18 Height (Feet): 5 Height (Inches): 6.00 Weight (Pounds): 120 Respiratory/Chest: lungs clear Cardiovascular: normal rate, regular rhythm, no gallop/murmur Abdomen: soft, non tender, other - wound clean Laboratory Tests Test 07/22/17 05:45 White Blood Count 7.8 K/UL (4.8-10.8) Red Blood Count 3.24 M/UL (4.20-5.40) L Hemoglobin 11.1 G/DL (12.0-16.0) L Hematocrit 30.8 % (37.0-47.0) L Mean Corpuscular Volume 95 FL (80-99) Mean Corpuscular Hemoglobin 34.1 PG (27.0-31.0) H Mean Corpuscular Hemoglobin Concent 35.9 G/DL (32.0-36.0) Red Cell Distribution Width 11.2 % (11.6-14.8) L Platelet Count 451 K/UL (150-450) H Mean Platelet Volume 6.2 FL (6.5-10.1) L Neutrophils (%) (Auto) 61.2 % (45.0-75.0) Lymphocytes (%) (Auto) 25.3 % (20.0-45.0) Monocytes (%) (Auto) 11.2 % (1.0-10.0) H Eosinophils (%) (Auto) 1.4 % (0.0-3.0) Basophils (%) (Auto) 0.9 % (0.0-2.0) Sodium Level 135 MMOL/L (136-145) L Potassium Level 3.8 MMOL/L (3.5-5.1) Chloride Level 101 MMOL/L (98-107) Carbon Dioxide Level 28 MMOL/L (21-32) Anion Gap 6 mmol/L (5-15) Blood Urea Nitrogen 4 mg/dL (7-18) L Creatinine 0.5 MG/DL (0.55-1.30) L Estimat Glomerular Filtration Rate > 60 mL/min (>60) Glucose Level 118 MG/DL (74-106) H Calcium Level 9.3 MG/DL (8.5-10.1) Magnesium Level 1.7 MG/DL (1.8-2.4) L BRISSA WORLEY Jul 22, 2017 10:50"
[2017-07-22] MEDS ORDERED: Levofloxacin 500mg tab ORAL SCH (11:30)
[2017-07-22] MEDS ORDERED: metroNIDAZOLE 500mg tab ORAL SCH (11:30)
[2017-07-22 12:00] VITALS: BP 158/77
--- NOTE | 2017-07-22 12:00 | General Progress Note ---
Progress Note Progress Note Surgery: doing well. all path benign. pain improved. had BM afebrile, HD stable, labs okay. exam benign. wound c/d/i -advance diet -tko iv fluids -possible d/c in 1-2 days Malachi Dexter Jul 22, 2017 12:00
[2017-07-22 16:00] VITALS: BP 146/85
[2017-07-22] MEDS: Piperacillin/Tazobactam 3.375 GM in D5W 110 ML IVPB SCH (17:43)
--- NOTE | 2017-07-22 19:06 | General Progress Note ---
Assessment/Plan Assessment/Plan Assessment - acute diverticulitis with phelgmon / operforation / abscess - s/p resection and anastomosis Recommnedations - diet per surgery - IVF - ABX - OOB Subjective Allergies: Coded Allergies: No Known Allergies (Unverified , 01/22/12) Subjective Feels ok no vomiting path reviewed Objective Last 24 Hour Vital Signs Date Time Temp Pulse Resp B/P (MAP) Pulse Ox O2 Delivery O2 Flow Rate FiO2 07/22/17 16:00 98.7 85 20 146/85 99 Room Air 98.7 07/22/17 12:00 98.6 75 18 158/77 100 Room Air 98.6 07/22/17 07:51 98.9 82 18 155/77 98 Room Air 98.9 07/22/17 05:26 99.1 84 18 140/79 96 Room Air 99.1 07/22/17 00:00 99.1 88 18 151/80 95 Room Air 99.1 07/21/17 20:00 99.4 91 18 152/83 100 Room Air 99.4 Intake and Output 07/21/17 07/22/17 19:00 07:00 Intake Total 460 ml 987.5 ml Output Total 300 ml Balance 460 ml 687.5 ml Intake Oral 250 ml 50 ml IV Total 210 ml 937.5 ml Output Urine Total 300 ml # Voids 4 # Bowel Movements 3 1 Laboratory Tests 07/22/17 05:45: White Blood Count 7.8, Red Blood Count 3.24L, Hemoglobin 11.1L, Hematocrit 30.8L , Mean Corpuscular Volume 95, Mean Corpuscular Hemoglobin 34.1H, Mean Corpuscular Hemoglobin Concent 35.9, Red Cell Distribution Width 11.2L, Platelet Count 451H, Mean Platelet Volume 6.2L, Neutrophils (%) (Auto) 61.2, Lymphocytes (%) (Auto) 25.3, Monocytes (%) (Auto) 11.2H, Eosinophils (%) (Auto) 1.4, Basophils (%) (Auto) 0.9, Sodium Level 135L, Potassium Level 3.8, Chloride Level 101, Carbon Dioxide Level 28, Anion Gap 6, Blood Urea Nitrogen 4L, Creatinine 0.5L, Estimat Glomerular Filtration Rate > 60, Glucose Level 118H, Calcium Level 9.3, Magnesium Level 1.7L Height (Feet): 5 Height (Inches): 6.00 Weight (Pounds): 120 Objective WDWN AA woman NCAT supple CTA RRR soft ND, (+) vertical midline scar no edema non focal RICCI KING Jul 22, 2017 19:06
[2017-07-22 20:00] VITALS: BP 148/76
--- NOTE | 2017-07-22 22:09 | General Progress Note ---
Assessment/Plan Assessment/Plan diverticulitis phlegmon htn hypokalmeia hypo magnesemia hypophosphatemia abx gensurgery fup dw Dr Dexter and Dr Borjas fluids replace lytes potassium diet per surgery post op ambulate bp controlled dvt and ulcer prphylaxis use incentive spirometer Subjective Allergies: Coded Allergies: No Known Allergies (Unverified , 01/22/12) Subjective decreased post op pain no chest pain or sob, pos gas and small bm no n/v advanced to regular diet Objective Last 24 Hour Vital Signs Date Time Temp Pulse Resp B/P (MAP) Pulse Ox O2 Delivery O2 Flow Rate FiO2 07/22/17 20:00 98.8 89 18 148/76 99 Room Air 98.8 07/22/17 16:00 98.7 85 20 146/85 99 Room Air 98.7 07/22/17 12:00 98.6 75 18 158/77 100 Room Air 98.6 07/22/17 07:51 98.9 82 18 155/77 98 Room Air 98.9 07/22/17 05:26 99.1 84 18 140/79 96 Room Air 99.1 07/22/17 00:00 99.1 88 18 151/80 95 Room Air 99.1 Intake and Output 07/21/17 07/22/17 19:00 07:00 Intake Total 460 ml 987.5 ml Output Total 300 ml Balance 460 ml 687.5 ml Intake Oral 250 ml 50 ml IV Total 210 ml 937.5 ml Output Urine Total 300 ml # Voids 4 # Bowel Movements 3 1 Laboratory Tests 07/22/17 05:45: White Blood Count 7.8, Red Blood Count 3.24L, Hemoglobin 11.1L, Hematocrit 30.8L , Mean Corpuscular Volume 95, Mean Corpuscular Hemoglobin 34.1H, Mean Corpuscular Hemoglobin Concent 35.9, Red Cell Distribution Width 11.2L, Platelet Count 451H, Mean Platelet Volume 6.2L, Neutrophils (%) (Auto) 61.2, Lymphocytes (%) (Auto) 25.3, Monocytes (%) (Auto) 11.2H, Eosinophils (%) (Auto) 1.4, Basophils (%) (Auto) 0.9, Sodium Level 135L, Potassium Level 3.8, Chloride Level 101, Carbon Dioxide Level 28, Anion Gap 6, Blood Urea Nitrogen 4L, Creatinine 0.5L, Estimat Glomerular Filtration Rate > 60, Glucose Level 118H, Calcium Level 9.3, Magnesium Level 1.7L Height (Feet): 5 Height (Inches): 6.00 Weight (Pounds): 120 General Appearance: WD/WN, no apparent distress Cardiovascular: normal rate Respiratory/Chest: lungs clear Abdomen: soft Objective abdomen wound clean decreased tendernesstenderness no rebound guarding CLARITZA FREED Jul 22, 2017 22:09
[2017-07-23] MEDS: Piperacillin/Tazobactam 3.375 GM in D5W 110 ML IVPB SCH ×3 (01:46→17:45)
[2017-07-23 06:01] VITALS: BP 141/71
[2017-07-23 08:03] VITALS: BP 134/76
[2017-07-23] MEDS: Pantoprazole Inj IVP SCH (08:34)
[2017-07-23] MEDS: Heparin 5000 units/ml inj SUBQ SCH ×2 (08:35→20:35)
--- NOTE | 2017-07-23 10:16 | Infectious Diseases Prog Note ---
"Assessment/Plan Assessment/Plan antibiotics : zosyn A 1. diverticulitis with perforation | abscess with e.coli 2. s/p Laparoscopic converted to open sigmoid colectomy. 3. s/p Evacuation of intra-abdominal abscess. 4. s/p Appendectomy. 5. s/p Lysis of adhesions. 6. hypertension 7. leucocytosis resolved P 1. continue zosyn in hospital 2. po augmentin 875 mg bid on discharge 9 more days 3. will follow up cultures Subjective Constitutional: Denies: fever, chills Respiratory: Reports: dry cough; Denies: shortness of breath Gastrointestinal/Abdominal: Denies: nausea, vomiting, diarrhea Musculoskeletal: Reports: pain - in abdomen decreasing Allergies: Coded Allergies: No Known Allergies (Unverified , 01/22/12) Objective Vital Signs Last 24 Hour Vital Signs Date Time Temp Pulse Resp B/P (MAP) Pulse Ox O2 Delivery O2 Flow Rate FiO2 07/23/17 08:03 98.6 79 20 134/76 97 Room Air 98.6 07/23/17 06:01 98.7 75 18 141/71 98 Room Air 98.7 07/22/17 20:00 98.8 89 18 148/76 99 Room Air 98.8 07/22/17 16:00 98.7 85 20 146/85 99 Room Air 98.7 07/22/17 12:00 98.6 75 18 158/77 100 Room Air 98.6 Height (Feet): 5 Height (Inches): 6.00 Weight (Pounds): 120 Respiratory/Chest: lungs clear Cardiovascular: normal rate, regular rhythm, no gallop/murmur Abdomen: other - wound clean Extremities: no edema Current Medications Medications (Trade) Dose Ordered Sig/Hood Route PRN Reason Start Time Stop Time Status Last Admin Dose Admin Acetaminophen (Tylenol) 650 mg Q4H PRN ORAL T>100.5 07/21/17 12:00 08/16/17 11:59 Dextrose/ Electrolytes 1,000 ml @ 10 mls/hr Q24H IV 07/22/17 16:00 08/21/17 15:59 07/22/17 15:42 Diphenhydramine HCl (Benadryl) 25 mg Q6H PRN IVP Itching/Pruritis 07/21/17 12:00 08/16/17 11:59 Heparin Sodium (Porcine) (Heparin 5000 units/ml) 5,000 units EVERY 12 HOURS SUBQ 07/21/17 21:00 08/11/17 20:59 07/23/17 08:35 Ketorolac Tromethamine (Toradol 30mg) 30 mg Q6H PRN IV breakthrough pain 07/23/17 12:30 07/28/17 12:29 Morphine Sulfate (Morphine Sulfate) 2 mg Q4H PRN IVP Moderate Pain (Pain Scale 4-6) 07/23/17 12:30 07/30/17 12:29 Morphine Sulfate (Morphine Sulfate) 4 mg Q4H PRN IVP Severe Pain (Pain Scale 7-10) 07/23/17 12:30 07/30/17 12:29 Ondansetron HCl (Zofran) 4 mg Q6H PRN IVP Nausea & Vomiting 07/21/17 12:00 08/16/17 11:59 Pantoprazole (Protonix) 40 mg DAILY IVP 07/22/17 09:00 08/17/17 08:59 07/23/17 08:34 Piperacillin Sod/ Tazobactam Sod 3.375 gm/Dextrose 110 ml @ 27.5 mls/hr Q8H IVPB 07/22/17 18:00 07/29/17 17:59 07/23/17 09:52 BRISSA WORLEY Jul 23, 2017 10:16"
[2017-07-23 11:42] VITALS: BP 149/82
[2017-07-23] MEDS ORDERED: Morphine Sulfate 4mg/ml Inj IVP PRN ×2 (12:30)
[2017-07-23] MEDS ORDERED: Ketorolac 30mg Inj IV PRN (12:30)
[2017-07-23] MEDS ORDERED: D5 1/2NS w/KCl 20mEq 1,000 ML IV SCH (13:00)
--- NOTE | 2017-07-23 14:57 | General Progress Note ---
Progress Note Progress Note Surgery: doing well. all path benign. pain improved. had BM afebrile, HD stable, labs okay. exam benign. wound c/d/i diet as tolerated d/c home tomorrow follow up with me in 1-2 weeks Malachi Dexter Jul 23, 2017 14:57
[2017-07-23 15:59] VITALS: BP 141/64
[2017-07-23] MEDS: D5 1/2NS w/KCl 20mEq 1,000 ML IV SCH (16:03)
[2017-07-23 20:00] VITALS: BP 145/77
--- NOTE | 2017-07-23 21:31 | General Progress Note ---
Assessment/Plan Assessment/Plan Assessment - acute diverticulitis with phelgmon / operforation / abscess - s/p resection and anastomosis Recommnedations - diet per surgery - IVF - ABX - OOB Subjective Allergies: Coded Allergies: No Known Allergies (Unverified , 01/22/12) Subjective Feels ok no vomiting now on solid po diet Objective Last 24 Hour Vital Signs Date Time Temp Pulse Resp B/P (MAP) Pulse Ox O2 Delivery O2 Flow Rate FiO2 07/23/17 15:59 98.5 82 20 141/64 100 Room Air 98.5 07/23/17 11:42 98.0 79 20 149/82 100 Room Air 98.0 07/23/17 08:03 98.6 79 20 134/76 97 Room Air 98.6 07/23/17 06:01 98.7 75 18 141/71 98 Room Air 98.7 Intake and Output 07/22/17 07/23/17 19:00 07:00 Intake Total 767.5 ml 452.5 ml Output Total 1000 ml 400 ml Balance -232.5 ml 52.5 ml Intake Oral 500 ml 200 ml IV Total 267.5 ml 252.5 ml Output Urine Total 1000 ml 400 ml # Voids 4 Height (Feet): 5 Height (Inches): 6.00 Weight (Pounds): 120 Objective WDWN AA woman NCAT supple CTA RRR soft ND, (+) vertical midline scar no edema non focal RICCI KING Jul 23, 2017 21:31
--- NOTE | 2017-07-23 21:42 | General Progress Note ---
Assessment/Plan Assessment/Plan diverticulitis phlegmon htn hypokalmeia hypo magnesemia hypophosphatemia abx gensurgery fup dw Dr Dexter and Dr Borjas fluids replace lytes potassium diet per surgery post op ambulate bp controlled dvt and ulcer prphylaxis use incentive spirometer dc plans for tomorrow sydney Dexter Subjective Allergies: Coded Allergies: No Known Allergies (Unverified , 01/22/12) Subjective decreased post op pain no chest pain or sob, pos gas and small bm no n/v advanced to regular diet feels weka asking to stay till tomorrow Objective Last 24 Hour Vital Signs Date Time Temp Pulse Resp B/P (MAP) Pulse Ox O2 Delivery O2 Flow Rate FiO2 07/23/17 15:59 98.5 82 20 141/64 100 Room Air 98.5 07/23/17 11:42 98.0 79 20 149/82 100 Room Air 98.0 07/23/17 08:03 98.6 79 20 134/76 97 Room Air 98.6 07/23/17 06:01 98.7 75 18 141/71 98 Room Air 98.7 Intake and Output 07/22/17 07/23/17 19:00 07:00 Intake Total 767.5 ml 452.5 ml Output Total 1000 ml 400 ml Balance -232.5 ml 52.5 ml Intake Oral 500 ml 200 ml IV Total 267.5 ml 252.5 ml Output Urine Total 1000 ml 400 ml # Voids 4 Height (Feet): 5 Height (Inches): 6.00 Weight (Pounds): 120 General Appearance: WD/WN Neck: supple Cardiovascular: normal rate Respiratory/Chest: lungs clear Abdomen: soft Objective abdomen wound clean much decreaed pain CLARITZA FREED Jul 23, 2017 21:42
[2017-07-24] VITALS: BP 137/77
[2017-07-24] MEDS: Piperacillin/Tazobactam 3.375 GM in D5W 110 ML IVPB SCH ×2 (02:13→09:24)
[2017-07-24 04:00] VITALS: BP 123/74
[2017-07-24] MEDS: Pantoprazole Inj IVP SCH (09:23)
[2017-07-24] MEDS: Heparin 5000 units/ml inj SUBQ SCH (09:26)
--- NOTE | 2017-07-24 11:45 | General Progress Note ---
Assessment/Plan Assessment/Plan Assessment - acute diverticulitis with phelgmon / operforation / abscess - s/p resection and anastomosis Recommnedations - d/c planning - PO abx to complete a 14 day course post op - outpatient f/u Subjective Allergies: Coded Allergies: No Known Allergies (Unverified , 01/22/12) Subjective Feels ok no vomiting tolerating solids for discharge today Objective Last 24 Hour Vital Signs Date Time Temp Pulse Resp B/P (MAP) Pulse Ox O2 Delivery O2 Flow Rate FiO2 07/24/17 08:00 97.0 81 18 97 97.0 07/24/17 04:00 98.2 78 20 123/74 100 Room Air 98.2 07/24/17 00:00 98.2 80 20 137/77 99 Room Air 98.2 07/23/17 20:00 99.3 81 20 145/77 99 Room Air 99.3 07/23/17 15:59 98.5 82 20 141/64 100 Room Air 98.5 07/23/17 11:42 98.0 79 20 149/82 100 Room Air 98.0 Intake and Output 07/23/17 07/24/17 19:00 07:00 Intake Total 760 ml 950.0 ml Output Total 500 ml 450 ml Balance 260 ml 500.0 ml Intake Oral 600 ml 750 ml IV Total 160 ml 200.0 ml Output Urine Total 400 ml 450 ml Stool Total 100 ml # Voids 3 3 # Bowel Movements 2 Height (Feet): 5 Height (Inches): 6.00 Weight (Pounds): 120 Objective WDWN AA woman NCAT supple CTA RRR soft ND, (+) vertical midline scar no edema non focal RICCI KING Jul 24, 2017 11:45
[2017-07-24 12:00] VITALS: BP 135/72
--- NOTE | 2017-07-24 12:57 | Infectious Diseases Prog Note ---
Assessment/Plan Assessment/Plan A 1. diverticulitis with perforation , abscess with E.coli 2. s/p Laparoscopic converted to open sigmoid colectomy. 3. s/p Evacuation of intra-abdominal abscess. 4. s/p Appendectomy. 5. s/p Lysis of adhesions. 6. hypertension 7. leucocytosis resolved 8. Uterine mass, lipoma P 1. Agree with discharge with PO Augment 875 mg BID X 8 days Subjective ROS Limited/Unobtainable: No Constitutional: Reports: no symptoms Respiratory: Reports: no symptoms Cardiovascular: Reports: no symptoms Gastrointestinal/Abdominal: Reports: no symptoms Genitourinary: Reports: no symptoms Allergies: Coded Allergies: No Known Allergies (Unverified , 01/22/12) Objective Vital Signs Last 24 Hour Vital Signs Date Time Temp Pulse Resp B/P (MAP) Pulse Ox O2 Delivery O2 Flow Rate FiO2 07/24/17 12:00 97.7 70 18 135/72 98 97.7 07/24/17 08:00 97.0 81 18 97 97.0 07/24/17 04:00 98.2 78 20 123/74 100 Room Air 98.2 07/24/17 00:00 98.2 80 20 137/77 99 Room Air 98.2 07/23/17 20:00 99.3 81 20 145/77 99 Room Air 99.3 07/23/17 15:59 98.5 82 20 141/64 100 Room Air 98.5 Height (Feet): 5 Height (Inches): 6.00 Weight (Pounds): 120 General Appearance: no acute distress HEENT: mucous membranes moist Respiratory/Chest: lungs clear Cardiovascular: normal rate Abdomen: soft, non tender, other - midline surgical lisa, healining surgical wound Extremities: no edema Neurologic/Psychiatric: alert, oriented x 3, responsive Current Medications Medications (Trade) Dose Ordered Sig/Hood Route PRN Reason Start Time Stop Time Status Last Admin Dose Admin Acetaminophen (Tylenol) 650 mg Q4H PRN ORAL T>100.5 07/21/17 12:00 08/16/17 11:59 Dextrose/ Electrolytes 1,000 ml @ 10 mls/hr Q24H IV 07/22/17 16:00 08/21/17 15:59 07/23/17 16:03 Diphenhydramine HCl (Benadryl) 25 mg Q6H PRN IVP Itching/Pruritis 07/21/17 12:00 08/16/17 11:59 Heparin Sodium (Porcine) (Heparin 5000 units/ml) 5,000 units EVERY 12 HOURS SUBQ 07/21/17 21:00 08/11/17 20:59 07/24/17 09:26 Ketorolac Tromethamine (Toradol 30mg) 30 mg Q6H PRN IV breakthrough pain 07/23/17 12:30 07/28/17 12:29 Morphine Sulfate (Morphine Sulfate) 2 mg Q4H PRN IVP Moderate Pain (Pain Scale 4-6) 07/23/17 12:30 07/30/17 12:29 Morphine Sulfate (Morphine Sulfate) 4 mg Q4H PRN IVP Severe Pain (Pain Scale 7-10) 07/23/17 12:30 07/30/17 12:29 Ondansetron HCl (Zofran) 4 mg Q6H PRN IVP Nausea & Vomiting 07/21/17 12:00 08/16/17 11:59 Pantoprazole (Protonix) 40 mg DAILY IVP 07/22/17 09:00 08/17/17 08:59 07/24/17 09:23 Piperacillin Sod/ Tazobactam Sod 3.375 gm/Dextrose 110 ml @ 27.5 mls/hr Q8H IVPB 07/22/17 18:00 07/29/17 17:59 07/24/17 09:24 KAE BUTTERFIELD Jul 24, 2017 12:57
[2017-07-24] MEDS ORDERED: AUGMENTIN 875-1 EAC1 ORAL (14:04)
[2017-07-24] MEDS ORDERED: NORCO 5-325 TA1 EAC1 ORAL (14:05)
[2017-07-24] MEDS ORDERED: DOCUSATE SODIU100 MG ORAL (14:06)
[2017-07-24] MEDS ORDERED: Tubing IV Secondary IV ONE (16:09)
--- NOTE | 2017-07-25 15:25 | Discharge Summary ---
Discharge Summary Discharge Summary Discharge Summary DATE OF ADMISSION: 07/12/2017 DATE OF DISCHARGE: 07/24/2017 CONSULTANTS: Dr. Malachi Sears BRIEF HOSPITAL COURSE: Patient is a pleasant 62-year-old female with history of hypertension, presented to the emergency room with complaints of worsening abdominal pain for the past week. She saw her primary physician and was treated initially for urinary tract infection. She was given ciprofloxacin. She developed increased abdominal pain associated with nausea and chills, no vomiting, no fever. She she did not have any bowel movements for 4 days. On evaluation at ED, CAT scan revealed acute diverticulitis with periventricular phlegmon. She was admitted and was placed on nothing by mouth and IV fluids. She was seen by surgery. Examination showed lower abdominal tenderness. She was informed need to monitor, if phlegmon develops into an abscess may need to be drained. She had a repeat CT scan and findings showed 4- 5 cm lower abdominal perisigmoid abscess. Collection not accessible percutaneously. On 07/17/2017, she underwent laparoscopic converted to open sigmoid colectomy with evacuation of intra-abdominal abscess; appendectomy; lysis of adhesions; and biopsy of abdominal lymph node. A Antonio drain was left in the pelvis. She was given Zosyn. She was continued on NPO until return of bowel function. She was encouraged to ambulate and get out of bed. Drain had minimal serous output, it was eventually discontinued. She was encouraged use of incentive spirometer. She was eventually started on clear liquids on 2017. She was given Levaquin and Flagyl. Diet was eventually advanced. Wound was clean dry and intact. She was eventually cleared for discharge home. FINAL DIAGNOSES: Diverticulitis with phlegmon/perforation/abscess Phlegmon/abscess status post laparoscopic converted to open sigmoid colectomy ( refer to operative report) Hypertension Hypokalemia Hypomagnesemia Hypophosphatemia DISPOSITION: Patient was discharged home DISCHARGE MEDICATIONS: Refer to Discharge Medication List. Continue with Augmentin 875/125 one tab by mouth twice a day for 8 more days I have been assigned to dictate discharge summary on this account, and I was not involved in the patient's management. Lori Sam CHIEF OF HOSPITAL MEDICINE Jul 25, 2017 15:25
== END 2017-07-24 16:10 | disposition home or self-care (01) | DRG 330 ==
LOC: EMR 13:36 → 2E 17:31 → EDBEDREQ 17:55 → 3E 07-21 10:30
PROC: 0DTJ0ZZ Resection of Appendix, Open Approach (ICD-10-PCS; principal; 2017-07-17 10:30)
PROC: 0DNW0ZZ Release Peritoneum, Open Approach (ICD-10-PCS; principal; 2017-07-17 10:30)
PROC: 07BB0ZX Excision of Mesenteric Lymphatic, Open Approach, Diagnostic (ICD-10-PCS; principal; 2017-07-17 10:30)
PROC: 0UB90ZZ Excision of Uterus, Open Approach (ICD-10-PCS; principal; 2017-07-17 10:30)
PROC: 0DTN0ZZ Resection of Sigmoid Colon, Open Approach (ICD-10-PCS; principal; 2017-07-17 10:30)
DX: K57.20 Diverticulitis of large intestine with perforation and abscess without bleeding (principal); D25.9 Leiomyoma of uterus, unspecified; Z53.31 Laparoscopic surgical procedure converted to open procedure; I10 Essential (primary) hypertension; E87.6 Hypokalemia; E83.42 Hypomagnesemia; E83.39 Other disorders of phosphorus metabolism; K66.0 Peritoneal adhesions (postprocedural) (postinfection); B96.20 Unspecified Escherichia coli [E. coli] as the cause of diseases classified elsewhere; D72.829 Elevated white blood cell count, unspecified; K37 Unspecified appendicitis
CPT/HCPCS: 36415; 71045; 74018; 74177; 76770; 80048; 80053; 80061; 81003; 83690; 83735; 84100; 84484; 85007; 85025; 85610; 85730; 86850; 86900; 86901; 87070; 87075; 87181; 87205; 93005; 94003; 94150; 99284; J2250; J2405; J2765; J8499